=== PATIENT | female | born 1960 | race Caucasian/White ===

== ENCOUNTER 2019-05-30 11:59 | Inpatient (IN) | payer BC ==
[2019-05-30] MEDS ORDERED: Sodium Chloride 0.9% 10 ML Syringe FLUSH PRN (12:11)
[2019-05-30] MEDS ORDERED: Sodium Chloride 0.9% 1,000 ML IV SCH (12:15)
[2019-05-30] MEDS ORDERED: Piperacillin/Tazobactam 3.375 GM in Sodium Chloride 0.9% 100 ML IV SCH (13:00)
[2019-05-30] MEDS: Ondansetron 4 MG/2 ML SDV IVPUSH PRN ×2 (13:40→20:48)
[2019-05-30] MEDS ORDERED: Acetaminophen 500 MG Tab PO PRN (14:41)
[2019-05-30] MEDS ORDERED: Acetaminophen 650 MG Tab.ER PO PRN (14:41)
[2019-05-30] MEDS ORDERED: ClonazePAM 0.5 MG Tab PO PRN (14:41)
[2019-05-30] MEDS ORDERED: Cyclobenzaprine 10 MG Tab PO PRN (14:41)
[2019-05-30] MEDS ORDERED: Diclofenac Sodium 1% Gel 100 GM Tube TOP PRN (14:41)
[2019-05-30] MEDS ORDERED: Non-Formulary Medication 1 Each (Menthol [Biofreeze] 1 APPLIC) TP PRN (14:41)
[2019-05-30] MEDS ORDERED: Albuterol 8 GM Inhaler INH PRN (14:41)
[2019-05-30] MEDS: Sodium Chloride 0.9% 1,000 ML IV SCH (16:01)
[2019-05-30] MEDS: Acetaminophen 325 MG Tab PO PRN (16:21)
[2019-05-30] MEDS: traMADol 50 MG Tab PO PRN (16:22)
[2019-05-30] MEDS: Piperacillin/Tazobactam/Dext 3.375 GM in Premix Bag 1 BAG IV SCH (19:16)
[2019-05-30] MEDS: Gabapentin 300 MG Cap PO SCH (20:45)
[2019-05-30] MEDS: Metoprolol Succinate 50 MG Tab.ER PO SCH (20:52)
[2019-05-30] MEDS ORDERED: CYCLOSPORINE EYEBOTH SCH (21:00)
[2019-05-30] MEDS ORDERED: oxyCODONE 5 MG Tab PO PRN (21:00)
[2019-05-31] MEDS: Piperacillin/Tazobactam/Dext 3.375 GM in Premix Bag 1 BAG IV SCH ×4 (00:42→19:01)
[2019-05-31] MEDS: Acetaminophen 325 MG Tab PO PRN ×2 (00:46→18:23)
[2019-05-31] MEDS: Sodium Chloride 0.9% 1,000 ML IV SCH ×2 (03:05→14:20)
[2019-05-31 07:32] LABS: ANION GAP 12.8 mmol/L (5-15); CHLORIDE,CL 107 mmol/L (98-115); SODIUM,NA 141 mmol/L (136-145)
[2019-05-31] MEDS: traMADol 50 MG Tab PO PRN ×2 (08:30→16:24)
[2019-05-31] MEDS: Gabapentin 100 MG Cap PO SCH (08:31)
[2019-05-31] MEDS: Folic Acid 1 MG Tab PO SCH (08:32)
[2019-05-31] MEDS: Ondansetron 4 MG/2 ML SDV IVPUSH PRN (08:41)
[2019-05-31] MEDS: Metoprolol Succinate 50 MG Tab.ER PO SCH ×2 (09:04→20:16)
--- NOTE | 2019-05-31 11:52 | PCM.PN ---
- General Info Date of Service: 05/31/19 Functional Status: Reports: Pain Controlled, Urinating. Denies: Tolerating Diet , Ambulating, New Symptoms - Review of Systems General: Reports: Fever, Chills, Night Sweats. Denies: Weakness, Fatigue HEENT: Reports: Sinus Congestion Pulmonary: Reports: No Symptoms Cardiovascular: Reports: No Symptoms Gastrointestinal: Reports: Decreased Appetite Genitourinary: Reports: Flank Pain (Mild, ) Musculoskeletal: Reports: No Symptoms Skin: Reports: Dryness Neurological: Denies: Confusion Psychiatric: Reports: No Symptoms - Patient Data Vitals - Most Recent: Last Vital Signs Temp 97.6 F 05/31/19 06:49 Pulse 72 05/31/19 09:04 Resp 20 05/31/19 06:49 BP 94/62 05/31/19 09:04 Pulse Ox 98 05/31/19 06:49 Weight - Most Recent: 167 lb 14.4 oz I&O - Last 24 Hours: Intake & Output 05/30/19 05/31/19 05/31/19 22:59 06:59 14:59 Intake Total 240 2041 Output Total 600 900 Balance -360 1141 Lab Results Last 24 Hours: Laboratory Results - last 24 hr 05/30/19 05/31/19 05/31/19 Range/Units 17:15 06:58 06:58 WBC 4.65 L (5.00-10.00) 10^3/uL RBC 3.49 L (3.80-5.50) 10^6/uL Hgb 11.2 L (12.0-16.0) g/dL Hct 34.1 L (37.0-47.0) % MCV 97.7 H (82.0-92.0) fL MCH 32.1 H (27.0-31.0) pg MCHC 32.8 (32.0-36.0) g/dL RDW 12.9 (11.5-14.5) % Plt Count 182 (150-400) 10^3/uL MPV 10.0 (7.4-10.4) fL Immature Gran % (Auto) 0.2 (0.0-5.0) % Neut % (Auto) 63.9 (50.0-70.0) % Lymph % (Auto) 23.9 (20.0-40.0) % [place] % (Auto) 11.4 H (2.0-8.0) % Eos % (Auto) 0.4 L (1.0-3.0) % Baso % (Auto) 0.2 (0.0-1.0) % Immature Gran # (Auto) 0.01 (0.00-0.50) 10^3/uL Neut # (Auto) 2.97 (2.50-7.00) 10^3/uL Lymph # (Auto) 1.11 (1.00-4.00) 10^3/uL [place] # (Auto) 0.53 (0.10-0.80) 10^3/uL Eos # (Auto) 0.02 L (0.10-0.30) 10^3/uL Baso # (Auto) 0.01 (0.00-0.10) 10^3/uL Sodium 141 (136-145) mmol/L Potassium 3.7 (3.3-5.3) mmol/L Chloride 107 (98-115) mmol/L Carbon Dioxide 24.9 (21.0-32.0) mmol/L Anion Gap 12.8 (5-15) mmol/L BUN 16 (6-25) mg/dL Creatinine 0.58 (0.51-1.17) mg/dL Est Cr Clr Drug Dosing 93.98 mL/min Estimated GFR (MDRD) > 60 mL/min Glucose 86 (75 - 99) mg/dL Lactic Acid 1.0 (0.4-2.0) mmol/L Calcium 8.0 L (8.7-10.3) mg/dL Med Orders - Current: Current Medications Acetaminophen (Tylenol) 650 mg PO Q4H PRN PRN Reason: Fever Last Admin: 05/31/19 00:46 Dose: 650 mg Albuterol (Ventolin Hfa) 0 gm INH Q4H PRN PRN Reason: Cough Clonazepam (Klonopin) 0.5 - 1 mg PO BEDTIME PRN PRN Reason: Other Cyclobenzaprine HCl (Flexeril) 5 - 10 mg PO TID PRN PRN Reason: Muscle Spasm Diclofenac Sodium (Voltaren 1% Gel) 2 gm TOP QID PRN PRN Reason: Pain Folic Acid (Folic Acid) 1 mg PO DAILY [facility] Last Admin: 05/31/19 08:32 Dose: 1 mg Gabapentin (Neurontin) 200 mg PO DAILY [facility] Last Admin: 05/31/19 08:31 Dose: 200 mg Gabapentin (Neurontin) 600 mg PO DAILY@1400 JOAN Gabapentin (Neurontin) 900 mg PO BEDTIME [facility] Last Admin: 05/30/19 20:45 Dose: 900 mg Piperacillin/Tazobactam/ (Dextrose 3.375 gm/ Premix) 50 mls @ 100 mls/hr IV Q6H [facility] Last Admin: 05/31/19 06:23 Dose: 100 mls/hr Sodium Chloride (Normal Saline) 1,000 mls @ 999 mls/hr IV .BOLUS [facility] Last Admin: 05/30/19 13:27 Dose: 999 mls/hr Sodium Chloride (Normal Saline) 1,000 mls @ 100 mls/hr IV ASDIRECTED [facility] Last Admin: 05/31/19 03:05 Dose: 100 mls/hr Metoprolol Succinate (Toprol Xl) 25 mg PO BID [facility] Last Admin: 05/31/19 09:04 Dose: Not Given Ondansetron HCl (Zofran) 4 mg IVPUSH Q4H PRN PRN Reason: Nausea/Vomiting Last Admin: 05/31/19 08:41 Dose: 4 mg Oxycodone HCl (Oxycodone) 5 mg PO BID PRN PRN Reason: Pain (severe 7-10) Sodium Chloride (Saline Flush) 10 ml FLUSH Q8HR PRN PRN Reason: keep vein open Tramadol HCl (Ultram) 50 - 100 mg PO TID PRN PRN Reason: Pain (moderate 4-6) Last Admin: 05/31/19 08:30 Dose: 50 mg Discontinued Medications Acetaminophen (Tylenol Arthritis Pain) 650 mg PO Q8H PRN PRN Reason: Pain Piperacillin Sod/Tazobactam (Sod 3.375 gm/ Sodium Chloride) 100 mls @ 200 mls/ hr IV ONETIME [facility] Stop: 05/30/19 15:00 Last Admin: 05/30/19 13:40 Dose: 200 mls/hr Non-Formulary Medication (Cyclosporine [Restasis Multidose]) 5.5 ml EYEBOTH BID JOAN - Exam Quality Assessment: No: Supplemental Oxygen General: Alert, Oriented, Cooperative, No Acute Distress Neck: No JVD Lungs: Clear to Auscultation, Normal Respiratory Effort Cardiovascular: Regular Rate, Regular Rhythm. No: Tachycardia, Murmurs GI/Abdominal Exam: Normal Bowel Sounds, Soft. No: Distended, Guarding, Rigid, Tender Back Exam: CVA Tenderness (L), CVA Tenderness (R) Extremities: No Pedal Edema Peripheral Pulses: 2+: Radial (R), Femoral (L) Skin: Dry Neurological: No New Focal Deficit Psy/Mental Status: Alert, Normal Affect, Normal Mood - Problem List Review Problem List Initiated/Reviewed/Updated: Yes - Plan Plan:: History summary Anna is a very pleasant 58-year-old female who was admitted through [facility] by [employer]bl[employer] with concerns of UTI/sepsis patient reported 1-2 days of with poor appetite, nausea, decreased by mouth intake and fever (Tmax 104 F). Associated severe neck pain to bilateral sides, headache, dry heaves, poor urine output, acute sinus congestion. Patient has had cystectom/Illeal conduit in 1994 since age 34, Hysterectomy in 1981, and is followed at [facility]. Last evaluated there on 05/12/19 and had a positive urine culture of >100,000 Ecoli with sensitivity to zosyn and rocephin. Since he was asymptomatic but recommended no treatment. She does have RA and is on DMARD therapy Update on rounds, overall symptoms improving, white count down, fever 102 early on admission, approved however chills last night. Improving in her CVA tenderness, blood pressure low holding BP meds, lactic acid normal, no altered mental status, looks good today Primary hospital problems Pyelonephritis, without sepsis, suspect 2/2 fever, CVA tenderness, chills last night, however no pyuria Rule out sepsis, ruled out Dehydration, improving Immunocompromised host, Significant allergies Chronic conditions --HTN, holding parameters. --Reactive airway disease , stable --Seronegative RA of multiple joints: Last took Enbrel on 05/18/19. On prednisone 10 mg daily PRN, folic acid 1 mg daily. Follows with rheumatology and last seen on 02/06/19. HOLD DMARD --Fibromyalgia syndrome, decrease tramadol, oxycodone IR 5 mg BID PRN, gabapentin, flexeril, tylenol arthritis --GERD, PPI --RLS --History of gout MDM/Disposition/overall plan With patient having urinary diversion, with systemic illness on admission likely prudent to have low threshold and treating her with complicated UTI/ pyonephritis especially in light of her RA and on DMARD therapy, however also considering her urine from the [facility] was clear in color with no cloudiness so likely not suggestive of pyuria which one would suspect with pyelonephritis/UTI. Will need to determine if any growth on her bacterial cultures --Continues to meet inpatient qualification, --Add Rocephin --Blood culture/urine cultures pending --Continue broad-spectrum Zosyn --Consider fevers lagging --Hold DMARD therapy --Reduce tramadol to 50 mg, with fibromyalgia hx consider low threshold for pain , I do not see pain mgt contract with her PCP, will highly recommend upon discharge to consider, could not generate PDMP report today. --Continue IV fluids, --BP med parameters --Allergy alert --To chair --Add micro-chamber to urine bag
[2019-05-31] MEDS: cefTRIAXone 1 GM Vial IVPUSH SCH (12:40)
[2019-05-31] MEDS ORDERED: Cyclobenzaprine 10 MG Tab PO PRN (13:16)
[2019-05-31] MEDS: Gabapentin 300 MG Cap PO SCH ×2 (14:19→20:16)
[2019-06-01] MEDS: Piperacillin/Tazobactam/Dext 3.375 GM in Premix Bag 1 BAG IV SCH ×2 (00:59→06:40)
[2019-06-01] MEDS: Sodium Chloride 0.9% 1,000 ML IV SCH (01:01)
[2019-06-01] MEDS: traMADol 50 MG Tab PO PRN ×3 (03:43→21:37)
[2019-06-01] MEDS: Ondansetron 4 MG/2 ML SDV IVPUSH PRN (03:45)
[2019-06-01] MEDS: Carboxymethylcellulose Sodium 0.5% Ophth Soln 15 ML Bottle EYEBOTH PRN ×2 (03:55→08:51)
[2019-06-01] MEDS: Folic Acid 1 MG Tab PO SCH (08:49)
[2019-06-01] MEDS: Metoprolol Succinate 50 MG Tab.ER PO SCH (08:49)
[2019-06-01] MEDS: Gabapentin 100 MG Cap PO SCH (08:49)
[2019-06-01] MEDS ORDERED: Sodium Chloride 0.9% 10 ML Syringe FLUSH PRN (10:46)
--- NOTE | 2019-06-01 10:50 | PCM.PN ---
- General Info Date of Service: 06/01/19 Functional Status: Reports: Pain Controlled, Tolerating Diet, Ambulating, Urinating, New Symptoms (Mild constipation) - Review of Systems General: Reports: No Symptoms. Denies: Fever, Weakness, Night Sweats HEENT: Reports: Sinus Congestion Pulmonary: Reports: No Symptoms Cardiovascular: Reports: No Symptoms Gastrointestinal: Reports: Constipation. Denies: Decreased Appetite, Diarrhea Genitourinary: Reports: No Symptoms Musculoskeletal: Reports: No Symptoms Skin: Reports: No Symptoms Neurological: Reports: No Symptoms Psychiatric: Reports: No Symptoms - Patient Data Vitals - Most Recent: Last Vital Signs Temp 98.0 F 06/01/19 06:55 Pulse 91 06/01/19 08:49 Resp 16 06/01/19 06:55 BP 91/52 L 06/01/19 08:49 Pulse Ox 98 06/01/19 06:55 Weight - Most Recent: 167 lb 14.4 oz I&O - Last 24 Hours: Intake & Output 05/31/19 06/01/19 06/01/19 22:59 06:59 14:59 Intake Total 1145 1094 Output Total 1500 1100 Balance -355 -6 Lab Results Last 24 Hours: Laboratory Results - last 24 hr 06/01/19 Range/Units 07:20 WBC 3.27 L (5.00-10.00) 10^3/uL RBC 3.33 L (3.80-5.50) 10^6/uL Hgb 10.8 L (12.0-16.0) g/dL Hct 32.6 L (37.0-47.0) % MCV 97.9 H (82.0-92.0) fL MCH 32.4 H (27.0-31.0) pg MCHC 33.1 (32.0-36.0) g/dL RDW 12.8 (11.5-14.5) % Plt Count 189 (150-400) 10^3/uL MPV 10.0 (7.4-10.4) fL Immature Gran % (Auto) 0.0 (0.0-5.0) % Neut % (Auto) 47.0 L (50.0-70.0) % Lymph % (Auto) 34.9 (20.0-40.0) % [place] % (Auto) 14.1 H (2.0-8.0) % Eos % (Auto) 3.1 H (1.0-3.0) % Baso % (Auto) 0.9 (0.0-1.0) % Immature Gran # (Auto) 0.00 (0.00-0.50) 10^3/uL Neut # (Auto) 1.54 L (2.50-7.00) 10^3/uL Lymph # (Auto) 1.14 (1.00-4.00) 10^3/uL [place] # (Auto) 0.46 (0.10-0.80) 10^3/uL Eos # (Auto) 0.10 (0.10-0.30) 10^3/uL Baso # (Auto) 0.03 (0.00-0.10) 10^3/uL ESR 30 H (0-20) mm/hr Med Orders - Current: Current Medications Acetaminophen (Tylenol) 650 mg PO Q4H PRN PRN Reason: Fever Last Admin: 05/31/19 18:23 Dose: 650 mg Albuterol (Ventolin Hfa) 0 gm INH Q4H PRN PRN Reason: Cough Artificial Tears (Refresh Tears 0.5%) 0 ml EYEBOTH ASDIRECTED PRN PRN Reason: Dry Eyes Last Admin: 06/01/19 08:51 Dose: 1 drop Ceftriaxone Sodium (Rocephin) 1 gm IVPUSH Q24H [facility] Last Admin: 05/31/19 12:40 Dose: 1 gm Clonazepam (Klonopin) 0.5 - 1 mg PO BEDTIME PRN PRN Reason: Other Cyclobenzaprine HCl (Flexeril) 10 mg PO TID PRN PRN Reason: Muscle Spasm Last Admin: 05/31/19 13:52 Dose: 10 mg Diclofenac Sodium (Voltaren 1% Gel) 2 gm TOP QID PRN PRN Reason: Pain Folic Acid (Folic Acid) 1 mg PO DAILY [facility] Last Admin: 06/01/19 08:49 Dose: 1 mg Gabapentin (Neurontin) 200 mg PO DAILY [facility] Last Admin: 06/01/19 08:49 Dose: 200 mg Gabapentin (Neurontin) 600 mg PO DAILY@1400 [facility] Last Admin: 05/31/19 14:19 Dose: 600 mg Gabapentin (Neurontin) 900 mg PO BEDTIME [facility] Last Admin: 05/31/19 20:16 Dose: 900 mg Piperacillin/Tazobactam/ (Dextrose 3.375 gm/ Premix) 50 mls @ 100 mls/hr IV Q6H [facility] Last Admin: 06/01/19 06:40 Dose: 100 mls/hr Sodium Chloride (Normal Saline) 1,000 mls @ 999 mls/hr IV .BOLUS [facility] Last Admin: 05/30/19 13:27 Dose: 999 mls/hr Sodium Chloride (Normal Saline) 1,000 mls @ 100 mls/hr IV ASDIRECTED [facility] Last Admin: 06/01/19 01:01 Dose: 100 mls/hr Metoprolol Succinate (Toprol Xl) 25 mg PO BID [facility] Last Admin: 06/01/19 08:49 Dose: Not Given Ondansetron HCl (Zofran) 4 mg IVPUSH Q4H PRN PRN Reason: Nausea/Vomiting Last Admin: 06/01/19 03:45 Dose: 4 mg Oxycodone HCl (Oxycodone) 5 mg PO BID PRN PRN Reason: Pain (severe 7-10) Sodium Chloride (Saline Flush) 10 ml FLUSH Q8HR PRN PRN Reason: keep vein open Last Admin: 06/01/19 03:47 Dose: 10 ml Tramadol HCl (Ultram) 50 mg PO TID PRN PRN Reason: Pain (moderate 4-6) Last Admin: 06/01/19 03:43 Dose: 50 mg Discontinued Medications Acetaminophen (Tylenol Arthritis Pain) 650 mg PO Q8H PRN PRN Reason: Pain Cyclobenzaprine HCl (Flexeril) 5 - 10 mg PO TID PRN PRN Reason: Muscle Spasm Piperacillin Sod/Tazobactam (Sod 3.375 gm/ Sodium Chloride) 100 mls @ 200 mls/ hr IV ONETIME [facility] Stop: 05/30/19 15:00 Last Admin: 05/30/19 13:40 Dose: 200 mls/hr Non-Formulary Medication (Cyclosporine [Restasis Multidose]) 5.5 ml EYEBOTH BID [facility] Tramadol HCl (Ultram) 50 - 100 mg PO TID PRN PRN Reason: Pain (moderate 4-6) Last Admin: 05/31/19 08:30 Dose: 50 mg - Exam Quality Assessment: Urine Catheter (Urine is clear), DVT Prophylaxis (Will apply test today). No: Supplemental Oxygen General: Alert, Oriented Neck: Supple Lungs: Clear to Auscultation, Normal Respiratory Effort Cardiovascular: Regular Rate, Regular Rhythm GI/Abdominal Exam: Soft (Female) Exam: Deferred Back Exam: CVA Tenderness (L) (Much less tenderness left side). No: CVA Tenderness (R) Extremities: No Pedal Edema Skin: Warm, Dry, Intact Neurological: No New Focal Deficit Psy/Mental Status: Alert, Normal Affect, Normal Mood - Problem List Review Problem List Initiated/Reviewed/Updated: Yes - My Orders Last 24 Hours: My Active Orders 05/31/19 12:00 cefTRIAXone [Rocephin] 1 gm IVPUSH Q24H 05/31/19 12:16 traMADol [Ultram] 50 mg PO TID PRN 05/31/19 13:16 Cyclobenzaprine [Flexeril] 10 mg PO TID PRN 06/01/19 03:46 Carboxymethylcellulose Sodium [Refresh Tears 0.5%] 0 ml EYEBOTH ASDIRECTED PRN - Plan Plan:: History summary Anna is a very pleasant 58-year-old female who was 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 Associated severe neck pain to bilateral sides, headache, dry heaves, poor urine output, acute sinus congestion. Patient has had cystectom/Illeal conduit in 1994 since age 34, Hysterectomy in 1981, and is followed at [facility]. Last evaluated there on 05/12/19 and had a positive urine culture of >100,000 Ecoli with sensitivity to zosyn and rocephin. Since he was asymptomatic but recommended no treatment. She does have RA and is on DMARD therapy Update on rounds, much improved today, improving appetite, no chills, less CVA tenderness, slightly constipated today, no vomiting, urine clear, adequate intake output, Tmax past 24 hours ~99. Primary hospital problems Possible Pyelonephritis, without sepsis, Rule out sepsis, ruled out Elevated liver transaminases, ? DMARD etiology Hypotension, drug-induced/hypovolemia, Immunocompromised host, Significant allergies Chronic conditions --HTN, holding parameters. --Reactive airway disease , stable --Seronegative RA of multiple joints: Last took Enbrel on 05/18/19. On prednisone 10 mg daily PRN, folic acid 1 mg daily. Follows with rheumatology and last seen on 02/06/19. HOLD DMARD --Fibromyalgia syndrome, decrease tramadol, oxycodone IR 5 mg BID PRN, gabapentin, flexeril, tylenol arthritis --GERD, PPI --RLS --History of gout MDM/Disposition/overall plan With patient having urinary diversion, with systemic illness on admission likely prudent to have low threshold and treating her with complicated UTI/ pyonephritis especially in light of her RA and on DMARD therapy, however also considering her urine from the [facility] was clear in color with no cloudiness so likely not suggestive of pyuria which one would suspect with pyelonephritis/UTI. No growth on blood cultures, culture pending. --Discontinue Zosyn --Continue Rocephin --Saline lock, discontinue IV fluids, --Add stool softener --Encourage PO fluids fluids --Blood culture no growth. Urine culture pending, will request preliminary results today --Hold DMARD therapy --HOLD BP med --DVT prophylaxis, ambulation BATOOL stockings --Allergy alert Discharge planning --Anticipate discharge in a.m. if no fever, vomiting, improving blood pressure. --Will recommend PCP on discharge to consider placing on pain mgt contract if the need for ongoing COT.
[2019-06-01] MEDS: cefTRIAXone 1 GM Vial IVPUSH SCH (12:14)
[2019-06-01] MEDS: Docusate Sodium 100 MG Cap PO SCH (12:15)
[2019-06-01] MEDS: Gabapentin 300 MG Cap PO SCH ×2 (13:39→21:35)
[2019-06-02] MEDS: Carboxymethylcellulose Sodium 0.5% Ophth Soln 15 ML Bottle EYEBOTH PRN ×2 (06:00→09:52)
[2019-06-02] MEDS: Docusate Sodium 100 MG Cap PO SCH (08:18)
[2019-06-02] MEDS: Folic Acid 1 MG Tab PO SCH (08:18)
[2019-06-02] MEDS: Gabapentin 100 MG Cap PO SCH (08:18)
--- NOTE | 2019-06-02 09:14 | PCM.DCSUM1 ---
Discharge Summary - Hospital Course Diagnosis: Stroke: No - Discharge Data Discharge Date: 06/02/19 Discharge Disposition: Home, Self-Care 01 Condition: Good - Patient Instructions Diet: Usual Diet as Tolerated, Drink 8-10+ Glasses/Day Activity: As Tolerated Driving: May Drive Today Showering/Bathing: May Shower Notify Provider of: Fever, Increased Pain, Nausea and/or Vomiting - Discharge Plan *PRESCRIPTION DRUG MONITORING PROGRAM REVIEWED*: No (PDMP sx down) *COPY OF PRESCRIPTION DRUG MONITORING REPORT IN PATIENT JESSICA: No (PDPM system down.) Home Medications: Home Meds Acetaminophen [Pain Relief Extra Strength] 500 mg PO BID PRN 05/30/19 [History] Acetaminophen [Tylenol Arthritis Pain] 650 mg PO Q8H PRN 05/30/19 [History] Albuterol [Ventolin HFA] 2 puff INH Q4H PRN 05/30/19 [History] Ascorbic Acid [Vitamin C] 1,000 mg PO DAILY 05/30/19 [History] Gnqavdf-Nazifpyax-Bmlnwql D 2 tab PO DAILY 05/30/19 [History] Clobetasol [Temovate 0.05%] 25 ml TOP BID 05/30/19 [History] ClonazePAM [KlonoPIN] 0.5 - 1 mg PO BEDTIME PRN 05/30/19 [History] Cyclobenzaprine [Flexeril] 10 mg PO TID PRN 05/30/19 [History] Dextran 70/Hypromellose [Artificial Tears] 1 - 2 drop EYEBOTH QID 05/30/19 [ History] Diclofenac Sodium [Voltaren 1% Gel] 1 applic TP QID PRN 05/30/19 [History] Etanercept [Enbrel Sureclick] 50 mg SQ Q7D 05/30/19 [History] Folic Acid 1 mg PO DAILY 05/30/19 [History] Gabapentin [Neurontin] 200 mg PO DAILY 05/30/19 [History] Gabapentin [Neurontin] 600 mg PO DAILY@1600 05/30/19 [History] Gabapentin [Neurontin] 900 mg PO BEDTIME 05/30/19 [History] Ketotifen [Ketotifen 0.025% Ophth Soln] 1 drop EYEBOTH BID PRN 05/30/19 [History ] Lutein 20 mg PO DAILY 05/30/19 [History] Menthol [Biofreeze] 1 applic TP BID PRN 05/30/19 [History] Metoprolol Succinate 25 mg PO BID 05/30/19 [History] Nystatin [Nystop] 1 applic TOP TID PRN 05/30/19 [History] Ondansetron [Zofran] 4 mg PO TID PRN 05/30/19 [History] Tumeric 500 mg PO BID 05/30/19 [History] Zoledronic Acid in Water [Reclast] 5 mg IV Q12M 05/30/19 [History] cycloSPORINE [Restasis Multidose] 5.5 ml EYEBOTH BID 05/30/19 [History] oxyCODONE 5 mg PO BID PRN 05/30/19 [History] predniSONE [Prednisone] 10 mg PO DAILY 05/30/19 [History] traMADol HCl [Tramadol HCl] 50 mg PO TID PRN 05/30/19 [History] - Discharge Summary/Plan Comment DC Time >30 min.: No Discharge Summary/Plan Comment: Final diagnosis R/O Pyelonephritis, this was ruled out Rule out sepsis, ruled out Autoimmune hepatitis/Elevated transaminases, suspect DMARD etiology Immunocompromised host Dehydration, euvolemic on discharge Significant allergies History summary Anna is a very pleasant 58-year-old female who was admitted through [facility] by Sierra Leblanc NP with concerns of UTI/sepsis patient reported 1-2 days of with poor appetite, nausea, decreased by mouth intake and fever (Tmax 104 F). Associated severe neck pain to bilateral sides, headache, dry heaves, poor urine output, acute sinus congestion. Patient has had cystectom/Illeal conduit in 1994 since age 34, Hysterectomy in 1981, and is followed at [facility]. Last evaluated there on 05/12/19 and had a positive urine culture of >100,000 Ecoli with sensitivity to zosyn and rocephin. Since he was asymptomatic but recommended no treatment. She does have RA and is on DMARD therapy therefore opportunistic infection was suspect Hospital course No complications, side effects or adverse reactions to treatments and/or medications. Temperature max 102 however that was very early on on admission. Rocephin was added to broad-spectrum Zosyn however eventually patient's condition started pointing to non-bacterial etiology of her symptoms therefore Zosyn was discontinued. She was afebrile 36 hours prior to discharge. Her blood pressure medicine was held as she did have low however asymptomatic blood pressure however MAPs were adequate. Her urine remained clear, her CVA tenderness was improving, she had improved appetite area no diarrhea however slight constipation improved with Colace. Review of her [facility] chart her urine was clear, urine cultures mixed carolann with no organism. Blood cx. no growth. White count dropped quickly below the expected threshold of a bacterial infection. No casts were seen in urine. Her symptoms on admission highly suggested likely pyelonephritis and with patient having urinary diversion, along with her with systemic illness on admission I felt likely prudent to have a low threshold of bacterial etiology and treating her A complicated UTI/ pyonephritis especially in light of her RA and on DMARD therapy, however also considering her urine from the [facility] was clear in color with no cloudiness so likely not suggestive of pyuria which one would suspect with pyelonephritis/UTI. No growth on blood cultures, culture pending. Medication changes plus adjustments upon discharge Hold Toprol until f/u. Hold DMARD until rheumatology appt Disposition/plan Patient will be discharged home self-care, DC instructions given. Report fevers , chills, Follow up with Sierra Leblanc Sunday, Recommendations upon follow-up Labs to assess LFTs 2/2 elevated transaminases, suspect DMARD etiology Possible restarting Toprol May need pain mgt contract if the need for ongoing COT. - General Info Functional Status: Reports: Pain Controlled - Review of Systems General: Reports: No Symptoms HEENT: Reports: Sinus Congestion Pulmonary: Reports: No Symptoms Cardiovascular: Reports: No Symptoms Gastrointestinal: Reports: No Symptoms Genitourinary: Reports: No Symptoms Musculoskeletal: Reports: No Symptoms Skin: Reports: No Symptoms Neurological: Reports: No Symptoms Psychiatric: Reports: No Symptoms - Patient Data Vitals - Most Recent: Last Vital Signs Temp 97.4 F 06/02/19 06:52 Pulse 67 06/02/19 06:52 Resp 16 06/02/19 06:52 BP 122/75 06/02/19 06:52 Pulse Ox 98 06/02/19 06:52 Weight - Most Recent: 167 lb 14.4 oz I&O - Last 24 hours: Intake & Output 06/01/19 06/02/19 06/02/19 22:59 06:59 14:59 Intake Total 350 300 Output Total 1500 1200 Balance -1150 -900 Med Orders - Current: Current Medications Acetaminophen (Tylenol) 650 mg PO Q4H PRN PRN Reason: Fever Last Admin: 05/31/19 18:23 Dose: 650 mg Albuterol (Ventolin Hfa) 0 gm INH Q4H PRN PRN Reason: Cough Artificial Tears (Refresh Tears 0.5%) 0 ml EYEBOTH ASDIRECTED PRN PRN Reason: Dry Eyes Last Admin: 06/02/19 06:00 Dose: 1 drop Ceftriaxone Sodium (Rocephin) 1 gm IVPUSH Q24H [facility] Last Admin: 06/01/19 12:14 Dose: 1 gm Clonazepam (Klonopin) 0.5 - 1 mg PO BEDTIME PRN PRN Reason: Other Cyclobenzaprine HCl (Flexeril) 10 mg PO TID PRN PRN Reason: Muscle Spasm Last Admin: 05/31/19 13:52 Dose: 10 mg Diclofenac Sodium (Voltaren 1% Gel) 2 gm TOP QID PRN PRN Reason: Pain Docusate Sodium (Colace) 100 mg PO DAILY [facility] Last Admin: 06/02/19 08:18 Dose: 100 mg Folic Acid (Folic Acid) 1 mg PO DAILY [facility] Last Admin: 06/02/19 08:18 Dose: 1 mg Gabapentin (Neurontin) 200 mg PO DAILY [facility] Last Admin: 06/02/19 08:18 Dose: 200 mg Gabapentin (Neurontin) 600 mg PO DAILY@1400 [facility] Last Admin: 06/01/19 13:39 Dose: 600 mg Gabapentin (Neurontin) 900 mg PO BEDTIME [facility] Last Admin: 06/01/19 21:35 Dose: 900 mg Metoprolol Succinate (Toprol Xl) 25 mg PO BID [facility] Last Admin: 06/01/19 08:49 Dose: Not Given Ondansetron HCl (Zofran) 4 mg IVPUSH Q4H PRN PRN Reason: Nausea/Vomiting Last Admin: 06/01/19 03:45 Dose: 4 mg Oxycodone HCl (Oxycodone) 5 mg PO BID PRN PRN Reason: Pain (severe 7-10) Sodium Chloride (Saline Flush) 10 ml FLUSH Q8HR PRN PRN Reason: keep vein open Last Admin: 06/01/19 03:47 Dose: 10 ml Sodium Chloride (Saline Flush) 10 ml FLUSH Q8HR PRN PRN Reason: keep vein open Tramadol HCl (Ultram) 50 mg PO TID PRN PRN Reason: Pain (moderate 4-6) Last Admin: 06/01/19 21:37 Dose: 50 mg Discontinued Medications Acetaminophen (Tylenol Arthritis Pain) 650 mg PO Q8H PRN PRN Reason: Pain Cyclobenzaprine HCl (Flexeril) 5 - 10 mg PO TID PRN PRN Reason: Muscle Spasm Piperacillin/Tazobactam/ (Dextrose 3.375 gm/ Premix) 50 mls @ 100 mls/hr IV Q6H [facility] Last Admin: 06/01/19 06:40 Dose: 100 mls/hr Sodium Chloride (Normal Saline) 1,000 mls @ 999 mls/hr IV .BOLUS [facility] Last Admin: 05/30/19 13:27 Dose: 999 mls/hr Sodium Chloride (Normal Saline) 1,000 mls @ 100 mls/hr IV ASDIRECTED [facility] Last Admin: 06/01/19 01:01 Dose: 100 mls/hr Piperacillin Sod/Tazobactam (Sod 3.375 gm/ Sodium Chloride) 100 mls @ 200 mls/ hr IV ONETIME [facility] Stop: 05/30/19 15:00 Last Admin: 05/30/19 13:40 Dose: 200 mls/hr Non-Formulary Medication (Cyclosporine [Restasis Multidose]) 5.5 ml EYEBOTH BID [facility] Tramadol HCl (Ultram) 50 - 100 mg PO TID PRN PRN Reason: Pain (moderate 4-6) Last Admin: 05/31/19 08:30 Dose: 50 mg - Exam Quality Assessment: Denies: DVT Prophylaxis General: Reports: Alert, Oriented Neck: Reports: Supple Lungs: Reports: Clear to Auscultation, Normal Respiratory Effort Cardiovascular: Reports: Regular Rate, Regular Rhythm (Female) Exam: Deferred Rectal (Female) Exam: Deferred Back Exam: Denies: CVA Tenderness (L) Skin: Reports: Warm, Dry, Intact Neurological: Reports: No New Focal Deficit Psy/Mental Status: Reports: Alert, Normal Affect, Normal Mood
[2019-06-02] MEDS: cefTRIAXone 1 GM Vial IVPUSH SCH (12:24)
== END 2019-06-02 14:33 | disposition home or self-care (01) | DRG 463 ==
LOC: UNDOADMIN 11:59 → KA.MS 11:59
PROVIDERS: ADMIT Nurse Practitioner Family; ATTEND Nurse Practitioner Family
DX: N30.01 Acute cystitis with hematuria (principal); E86.0 Dehydration; D89.9 Disorder involving the immune mechanism, unspecified; R74.0 Nonspecific elevation of levels of transaminase and lactic acid dehydrogenase [LDH]; G25.81 Restless legs syndrome; K59.00 Constipation, unspecified; M06.9 Rheumatoid arthritis, unspecified; M79.7 Fibromyalgia; R79.89 Other specified abnormal findings of blood chemistry; M81.0 Age-related osteoporosis without current pathological fracture; G89.29 Other chronic pain; G43.909 Migraine, unspecified, not intractable, without status migrainosus; M10.9 Gout, unspecified; I10 Essential (primary) hypertension; K21.9 Gastro-esophageal reflux disease without esophagitis; Z90.49 Acquired absence of other specified parts of digestive tract; Z98.890 Other specified postprocedural states; Z79.51 Long term (current) use of inhaled steroids; Z90.710 Acquired absence of both cervix and uterus; Z93.6 Other artificial openings of urinary tract status; Z88.1 Allergy status to other antibiotic agents; Z88.2 Allergy status to sulfonamides; Z91.013 Allergy to seafood; Z91.018 Allergy to other foods; Z88.8 Allergy status to other drugs, medicaments and biological substances; Z79.899 Other long term (current) drug therapy
CPT/HCPCS: 36415; 80048; 83605; 85025; 85651; A9270-GY; J0696; J2405; J2543; J7030; J7040; J7050

== ENCOUNTER 2020-05-16 14:00 | Emergency (ER) | payer BC ==
[2020-05-16] MEDS ORDERED: Morphine 2 MG/ML SYRINGE ONE (14:33)
[2020-05-16] MEDS ORDERED: Morphine 2 MG/ML SYRINGE IVPUSH ONE (14:37)
[2020-05-16] MEDS ORDERED: Ondansetron 4 MG/2 ML SDV IVPUSH ONE (14:37)
--- NOTE | 2020-05-16 14:43 | EDM.PDOC ---
ED HPI GENERAL MEDICAL PROBLEM - General Chief Complaint: Upper Extremity Injury/Pain Stated Complaint: LEFT WRIST PAIN Time Seen by Provider: 05/16/20 14:15 Source of Information: Reports: Patient History Limitations: Reports: No Limitations - History of Present Illness INITIAL COMMENTS - FREE TEXT/NARRATIVE: 59 YO WF PRESENTS TO ER WITH COMPLAINTS OF LEFT WRIST PAIN AND LEFT HIP PAIN AFTER TRIP AND FALLING BACKWARDS EARLIER TODAY. PT REPORTS SHE PUT HER LEFT ARM OUT TO BREAK HER FALL AND LANDED ON HER BUTTOCKS. PT REPORTS MAJORITY OF THE PAIN IS TO THE LEFT WRIST AND LEFT HIP. PT REPORTS SHE WAS ABLE TO STAND AFTER THE FALL BUT FELT NAUSEATED WITHOUT VOMITING. PT DENIES SYNCOPE, CHEST PAIN, DIZZINESS OR RECENT ILLNESSES. Onset: Today Location: Reports: Upper Extremity, Left, Lower Extremity, Left Quality: Reports: Ache Severity: Moderate Improves with: Reports: Rest Worsens with: Reports: Movement Context: Reports: Activity Associated Symptoms: Reports: No Other Symptoms, Nausea/Vomiting - Related Data Allergies Allergy/AdvReac Type Severity Reaction Status Date / Time iodine Allergy Sneezing Verified 05/30/19 13:11 lactose Allergy Other Verified 05/30/19 13:11 leflunomide Allergy Rash Verified 05/30/19 13:11 levofloxacin Allergy Rash Verified 05/30/19 13:11 prochlorperazine Allergy Other Verified 05/30/19 13:11 [From Compazine] stevioside [From Stevia] Allergy Rash Verified 05/30/19 13:11 strawberry Allergy Rash Verified 05/30/19 13:11 Sulfa (Sulfonamide Allergy Nausea and Verified 05/30/19 13:11 Antibiotics) Vomiting algae extract Allergy Difficulty Uncoded 05/30/19 13:11 Swallowing rup rub Allergy Other Uncoded 05/30/19 13:11 Home Meds: Home Meds Acetaminophen [Pain Relief Extra Strength] 500 mg PO BID PRN 05/30/19 [History] Acetaminophen [Tylenol Arthritis Pain] 650 mg PO Q8H PRN 05/30/19 [History] Albuterol [Ventolin HFA] 2 puff INH Q4H PRN 05/30/19 [History] Ascorbic Acid [Vitamin C] 1,000 mg PO DAILY 05/30/19 [History] Zukzlpr-Abvkujixm-Sblsjgc D 2 tab PO DAILY 05/30/19 [History] Clobetasol [Temovate 0.05%] 25 ml TOP BID 05/30/19 [History] ClonazePAM [KlonoPIN] 0.5 - 1 mg PO BEDTIME PRN 05/30/19 [History] Cyclobenzaprine [Flexeril] 10 mg PO TID PRN 05/30/19 [History] Dextran 70/Hypromellose [Artificial Tears] 1 - 2 drop EYEBOTH QID 05/30/19 [History] Diclofenac Sodium [Voltaren 1% Gel] 1 applic TP QID PRN 05/30/19 [History] Etanercept [Enbrel Sureclick] 50 mg SQ Q7D 05/30/19 [History] Folic Acid 1 mg PO DAILY 05/30/19 [History] Gabapentin [Neurontin] 200 mg PO DAILY 05/30/19 [History] Gabapentin [Neurontin] 600 mg PO DAILY@1600 05/30/19 [History] Gabapentin [Neurontin] 900 mg PO BEDTIME 05/30/19 [History] Ketotifen [Ketotifen 0.025% Ophth Soln] 1 drop EYEBOTH BID PRN 05/30/19 [History] Lutein 20 mg PO DAILY 05/30/19 [History] Menthol [Biofreeze] 1 applic TP BID PRN 05/30/19 [History] Metoprolol Succinate 25 mg PO BID 05/30/19 [History] Nystatin [Nystop] 1 applic TOP TID PRN 05/30/19 [History] Ondansetron [Zofran] 4 mg PO TID PRN 05/30/19 [History] Tumeric 500 mg PO BID 05/30/19 [History] Zoledronic Acid in Water [Reclast] 5 mg IV Q12M 05/30/19 [History] cycloSPORINE [Restasis Multidose] 5.5 ml EYEBOTH BID 05/30/19 [History] oxyCODONE 5 mg PO BID PRN 05/30/19 [History] predniSONE [Prednisone] 10 mg PO DAILY 05/30/19 [History] traMADol HCl [Tramadol HCl] 50 mg PO TID PRN 05/30/19 [History] Hydrocodone/Acetaminophen [Hydrocodone-Acetamin 10-325 mg] 1 each PO Q6HR PRN #10 tablet 05/16/20 [Rx] Past Medical History HEENT History: Reports: None Cardiovascular History: Reports: Heart Murmur Respiratory History: Reports: Bronchitis, Recurrent Gastrointestinal History: Reports: Irritable Bowel Syndrome Genitourinary History: Reports: Urostomy, UTI, Recurrent KINDERGARTNER History: Reports: Musculoskeletal History: Reports: Arthritis, Fibromyalgia Other Musculoskeletal History: rheumatoid arthristis Neurological History: Reports: Vertigo Hematologic History: Reports: None Immunologic History: Reports: Other (See Below) Other Immunologic History: RA Oncologic (Cancer) History: Reports: None Other Dermatologic History: skin sensitivity - Infectious Disease History Infectious Disease History: Reports: None - Past Surgical History Head Surgeries/Procedures: Reports: None HEENT Surgical History: Reports: None Cardiovascular Surgical History: Reports: None GI Surgical History: Reports: None, Appendectomy, Cholecystectomy, Colonoscopy, EGD, Hernia, Inguinal Endocrine Surgical History: Reports: None Musculoskeletal Surgical History: Reports: Other (See Below) Other Musculoskeletal Surgeries/Procedures:: Bonios removed both feet for LUISANA Dermatological Surgical History: Reports: None Social & Family History - Family History Family Medical History: Noncontributory HEENT: Reports: Glaucoma Cardiac: Reports: None Respiratory: Reports: None GI: Reports: None : Reports: None Other OBGYN Family History: Ovarian disease Musculoskeletal: Reports: Fibromyalgia Neurological: Reports: None Psychiatric: Reports: None Endocrine/Metabolic: Reports: Hypothyroidism Immunologic: Reports: None Dermatologic: Reports: None - Caffeine Use Caffeine Use: Reports: None Caffeine Use Comment: decaf coffee and tea Review of Systems - Review of Systems Review Of Systems: See Below Constitutional: Reports: No Symptoms Eyes: Reports: No Symptoms Ears: Reports: No Symptoms Nose: Reports: No Symptoms Mouth/Throat: Reports: No Symptoms Respiratory: Reports: No Symptoms Cardiovascular: Reports: No Symptoms GI/Abdominal: Reports: No Symptoms Genitourinary: Reports: No Symptoms Musculoskeletal: Reports: Arm Pain, Leg Pain Skin: Reports: No Symptoms Neurological: Reports: No Symptoms Psychiatric: Reports: No Symptoms ED EXAM, GENERAL - Physical Exam Exam: See Below Exam Limited By: No Limitations General Appearance: Alert, WD/WN, No Apparent Distress Head: Atraumatic, Normocephalic Neck: Normal Inspection, Supple, Non-Tender, Full Range of Motion Respiratory/Chest: No Respiratory Distress, Lungs Clear, Normal Breath Sounds, No Accessory Muscle Use, Chest Non-Tender Cardiovascular: Normal Peripheral Pulses, Regular Rate, Rhythm, No Edema, No Gallop, No JVD, No Murmur, No Rub GI/Abdominal: Normal Bowel Sounds, Soft, Non-Tender, No Organomegaly, No Distention, No Abnormal Bruit, No Mass Back Exam: Normal Inspection, Full Range of Motion, NT Extremities: Arm Pain (LEFT WRIST SWELLING AND DEFORMITY, LEFT HIP TENDERNESS), Leg Pain Neurological: Alert, Oriented, CN II-XII Intact, Normal Cognition, Normal Gait, Normal Reflexes, No Motor/Sensory Deficits Psychiatric: Normal Affect, Normal Mood Skin Exam: Warm, Dry, Intact, Normal Color, No Rash Lymphatic: No Adenopathy ED TRAUMA EXTREMITY PROCEDURES - Splinting Left Upper Extremity Splint Site: left wrist Pre-Procedure NV Status: Normal Post-Procedure NV Status: Normal Splint Material: Fiberglass Splint Design: Sugar Tong Provider Post-Splint Application NV Check: NV Status Normal, Good Position Complications: No Course - Orders/Labs/Meds Orders: Active Orders 24 hr Category Date Time Status Splinting [RC] ASDIRECTED Care 05/16/20 15:38 Ordered Meds: Medications Discontinued Medications Generic Name Dose Route Start Last Admin Trade Name Freq PRN Reason Stop Dose Admin Hydrocodone Bitart/Acetaminophen 3 tab 05/16/20 15:36 [place] 325-10 Mg PO 05/16/20 15:37 ONETIME ONE Morphine Sulfate Confirm 05/16/20 14:33 Morphine Administered 05/16/20 14:34 Dose 2 mg .ROUTE .STK-MED ONE Morphine Sulfate 2 mg 05/16/20 14:37 Morphine IVPUSH 05/16/20 14:38 ONETIME ONE Morphine Sulfate 4 mg 05/16/20 14:47 Morphine IVPUSH 05/16/20 14:48 ONETIME ONE Ondansetron HCl 4 mg 05/16/20 14:37 Zofran IVPUSH 05/16/20 14:38 ONETIME ONE - Radiology Interpretation Free Text/Narrative:: left wrist- impacted distal radial fracture; ulnar styloid fracture left hip/pelvis- nad Departure - Departure Time of Disposition: 15:48 Disposition: Home, Self-Care 01 Condition: Good Clinical Impression: Fracture of radius and ulna Qualifiers: Encounter type: initial encounter Fracture type: closed Laterality: left Qualified Code(s): S52.92XA - Unspecified fracture of left forearm, initial encounter for closed fracture; S5 - Unspecified fracture of shaft of left ulna, initial encounter for closed fracture - Discharge Information Prescriptions: Hydrocodone/Acetaminophen [Hydrocodone-Acetamin 10-325 mg] 1 each PO Q6HR PRN #10 tablet PRN Reason: Pain Instructions: Wrist Fracture Treated With Immobilization, [id number] Referrals: Sierra Leblanc NP [Primary Care Provider] - Sudheer Meek MD [Ordering Only Provider] - Forms: ED Department Discharge Additional Instructions: 1. DISCHARGE HOME 2. HYDROCODONE 10/325 EVERY 6 HOURS NEEDED #[address]. [address]LLOW UP WITH DR ELAINE JOHN NEXT 3-5 DAYS FOR FURTHER EVALUATION AND TREATMENT 4. ICE/IMMOBILIZATION 5. RETURN TO ER FOR WORSENING SYMPTOMS - My Orders Last 24 Hours: My Active Orders 05/16/20 15:38 Splinting [RC] ASDIRECTED - Assessment/Plan Last 24 Hours: My Active Orders 05/16/20 15:38 Splinting [RC] ASDIRECTED Assessment:: 1. IMPACTED LEFT DISTAL RADIAL FRACTURE 2. LEFT ULNAR STYLOID FRACTURE 3. LEFT HIP CONTUSION Plan: 1. DISCHARGE HOME 2. HYDROCODONE 10/325 EVERY 6 HOURS NEEDED #[address]. [address]LLOW UP WITH DR ELAINE JOHN NEXT 3-5 DAYS FOR FURTHER EVALUATION AND TREATMENT 4. ICE/IMMOBILIZATION 5. RETURN TO ER FOR WORSENING SYMPTOMS
[2020-05-16] MEDS ORDERED: Morphine 4 MG/ML VIAL IVPUSH ONE (14:47)
--- NOTE | 2020-05-16 15:30 | CR ---
[id number] RAD/RAD Pelvis 1V W 2V Left Hip EXAM: RAD Pelvis 1V W 2V Left Hip INDICATION: FALL. COMPARISON: None. FINDINGS: The hips and sacroiliac joints are normal in appearance with no fracture, dislocation or other osseous abnormality identified. Surgical clips are seen within the pelvis. IMPRESSION: 1. No acute findings. Kulwant Pace MD 05/16/20 [id number] Thank you for allowing us to participate in the care of your patient.
--- NOTE | 2020-05-16 15:32 | CR ---
[id number] RAD/RAD Wrist Left 3V Min EXAM: RAD Wrist Left 3V Min INDICATION: FALL. COMPARISON: None. DISCUSSION: Osteopenia. Positioning of the lateral view mildly limits assessment of alignment. There is an acute angulated and impacted fracture involving the distal radius with involvement of the articular surface which is partially characterized on this study. Small avulsion fracture off the tip of the ulnar styloid, favor chronic. No dislocation. IMPRESSION: 1. Acute impacted and angulated intra-articular fracture of the distal radius. Kulwant Pace MD 05/16/20 [id number] Thank you for allowing us to participate in the care of your patient.
[2020-05-16] MEDS ORDERED: Acetaminophen/HYDROcodone 325-10 MG Tab PO ONE (15:36)
== END 2020-05-16 16:20 | disposition home or self-care (01) ==
LOC: KA.ED 14:00
DX: S52.572A Other intraarticular fracture of lower end of left radius, initial encounter for closed fracture (principal); S52.612A Displaced fracture of left ulna styloid process, initial encounter for closed fracture; M06.9 Rheumatoid arthritis, unspecified; Z88.8 Allergy status to other drugs, medicaments and biological substances; Z91.018 Allergy to other foods; Z88.2 Allergy status to sulfonamides; Z91.048 Other nonmedicinal substance allergy status; Z79.899 Other long term (current) drug therapy; W01.0XXA Fall on same level from slipping, tripping and stumbling without subsequent striking against object, initial encounter
CPT/HCPCS: 29075; 29125; 73110-LT; 96374; 96375; 99283; 99283-25; A9270-GY; J2270; J2405

== ENCOUNTER 2021-01-24 09:45 | Inpatient (IN) | payer BC ==
[2021-01-24] MEDS ORDERED: Non-Formulary Medication 1 Each (Menthol [Biofreeze] 118 ML Gel..Ml.) TP PRN (14:41)
[2021-01-24] MEDS ORDERED: traMADol 50 MG Tab - PTOM PO PRN (14:41)
[2021-01-24] MEDS ORDERED: Non-Formulary Medication 1 Each (Ketotifen [Ketotifen 0.025% Ophth Soln] 5 ML Bottle) EYEBOTH PRN (14:41)
[2021-01-24] MEDS ORDERED: Non-Formulary Medication 1 Each (Albuterol 18 GM Inhaler) INH PRN (14:41)
[2021-01-24] MEDS ORDERED: ONDANSETRON 4 MG PO PRN (14:41)
[2021-01-24] MEDS ORDERED: Nystatin Topical Powder 15 GM Bottle TOP PRN (14:41)
[2021-01-24] MEDS ORDERED: CLONAZEPAM 0.5 MG PO PRN (14:41)
[2021-01-24] MEDS ORDERED: DIPHENHYDRAMINE 25 MG PO PRN (15:55)
[2021-01-24] MEDS: traMADol 50 MG Tab - PTOM PO PRN (16:11)
[2021-01-24] MEDS: GABAPENTIN 300 MG PO SCH ×2 (16:13→22:00)
[2021-01-24] MEDS ORDERED: Omeprazole 20 MG Cap.CR PO PRN (16:56)
[2021-01-24] MEDS ORDERED: Non-Formulary Medication 1 Each (Clobetasol [Temovate 0.05%] 25 ML Bottle) TOP SCH (21:00)
[2021-01-24] MEDS ORDERED: TUMERIC 500 MG PO SCH (21:00)
[2021-01-24] MEDS ORDERED: Famotidine 20 MG Tab PO SCH (21:00)
[2021-01-24] MEDS: DAILY FIBER PO SCH (21:45)
[2021-01-24] MEDS: ORLISTAT PO SCH (21:45)
[2021-01-24] MEDS: ACETAMINOPHEN PO PRN (22:15)
[2021-01-24] MEDS: HYDROCODONE PO PRN (22:15)
[2021-01-25] MEDS: HYDROCODONE PO PRN ×3 (02:33→21:07)
[2021-01-25] MEDS: ACETAMINOPHEN PO PRN ×3 (02:33→21:07)
[2021-01-25] MEDS: GABAPENTIN 100 MG PO SCH (07:31)
[2021-01-25] MEDS: AMLODIPINE 5 MG PO SCH (07:32)
[2021-01-25] MEDS: traMADol 50 MG Tab - PTOM PO PRN (07:33)
[2021-01-25] MEDS ORDERED: Metoprolol Succinate 50 MG Tab.ER - PTOM PO SCH (08:00)
[2021-01-25] MEDS ORDERED: Docusate Sodium 100 MG Cap PO SCH (09:00)
[2021-01-25] MEDS ORDERED: DOCUSATE SODIUM 100 MG PO SCH (09:00)
[2021-01-25] MEDS ORDERED: predniSONE 20 MG Tab PO SCH (09:00)
[2021-01-25] MEDS: ASCORBIC ACID 500 MG PO SCH (09:34)
[2021-01-25] MEDS: METHYL FOLATE 1000 MCG PO SCH (09:35)
[2021-01-25] MEDS: SLOW FE PO SCH (09:35)
[2021-01-25] MEDS: FLUTICASONE PROPIONATE NASBOTH SCH (09:36)
[2021-01-25] MEDS: DAILY FIBER PO SCH ×2 (09:37→20:17)
[2021-01-25] MEDS: CALCIUM PO SCH (09:38)
[2021-01-25] MEDS: LUTEIN 20 MG PO SCH (09:38)
[2021-01-25] MEDS: VITAMIN D PO SCH (09:38)
[2021-01-25] MEDS: Docusate Sodium 100 MG Cap**OWN MED PO SCH (09:39)
[2021-01-25] MEDS: ORLISTAT PO SCH ×3 (10:01→18:13)
--- NOTE | 2021-01-25 10:35 | PCM.HP.2 ---
H&P History of Present Illness - General Date of Service: 01/25/21 Admit Problem/Dx: Admission Diagnosis/Problem Admission Diagnosis/Problem Debility - Related Data Allergies/Adverse Reactions: Allergies Allergy/AdvReac Type Severity Reaction Status Date / Time iodine Allergy Sneezing Verified 01/24/21 12:09 lactose Allergy Other Verified 01/24/21 12:09 leflunomide Allergy Rash Verified 01/24/21 12:09 levofloxacin Allergy Rash Verified 01/24/21 12:09 montelukast [From Singulair] Allergy Other Verified 01/24/21 12:09 prochlorperazine Allergy Other Verified 01/24/21 12:09 [From Compazine] shellfish derived Allergy Hives Verified 01/24/21 12:09 stevioside [From Stevia] Allergy Rash Verified 01/24/21 12:09 strawberry Allergy Rash Verified 01/24/21 12:09 Sulfa (Sulfonamide Allergy Nausea and Verified 01/24/21 12:09 Antibiotics) Vomiting algae extract Allergy Difficulty Uncoded 01/24/21 12:09 Swallowing rup rub Allergy Other Uncoded 01/24/21 12:09 Home Medications: Home Meds Acetaminophen [Pain Relief Extra Strength] 500 mg PO BID PRN 05/30/19 [History] Acetaminophen [Tylenol Arthritis Pain] 650 mg PO Q8H PRN 05/30/19 [History] Albuterol [Ventolin HFA] 2 puff INH Q4H PRN 05/30/19 [History] Ascorbic Acid [Vitamin C] 500 mg PO ASDIRECTED 05/30/19 [History] Unljvhe-Hnfqhxtit-Ydtsnfr D 2 tab PO DAILY 05/30/19 [History] Clobetasol [Temovate 0.05%] 25 ml TOP BID 05/30/19 [History] ClonazePAM [KlonoPIN] 0.5 - 1 mg PO BEDTIME PRN 05/30/19 [History] Cyclobenzaprine [Flexeril] 10 mg PO TID PRN 05/30/19 [History] Dextran 70/Hypromellose [Artificial Tears] 1 - 2 drop EYEBOTH QID PRN 05/30/19 [History] Diclofenac Sodium [Voltaren 1% Gel] 1 applic TP BID PRN 05/30/19 [History] Folic Acid 1 mg PO DAILY 05/30/19 [History] Gabapentin [Neurontin] 200 mg PO DAILY 05/30/19 [History] Gabapentin [Neurontin] 600 mg PO DAILY@1600 05/30/19 [History] Gabapentin [Neurontin] 900 mg PO BEDTIME 05/30/19 [History] Lutein 20 mg PO DAILY 05/30/19 [History] Menthol [Biofreeze] 1 applic TP BID PRN 05/30/19 [History] Metoprolol Succinate 50 mg PO DAILY 05/30/19 [History] Nystatin [Nystop] 1 applic TOP TID PRN 05/30/19 [History] Ondansetron [Zofran] 4 mg PO TID PRN 05/30/19 [History] Tumeric 500 mg PO BID 05/30/19 [History] Zoledronic Acid in Water [Reclast] 5 mg IV Q12M 05/30/19 [History] traMADol HCl [Tramadol HCl] 50 - 100 mg PO TID PRN 05/30/19 [History] Albuterol [Ventolin HFA] 1 - 2 puff INH Q4HR PRN 01/24/21 [History] Docusate Sodium 200 mg PO DAILY 01/24/21 [History] Ferrous Sulfate [Slow Release Iron] 160 mg PO ASDIRECTED 01/24/21 [History] Fluticasone Propionate [Flonase] 1 spray NASBOTH DAILY 01/24/21 [History] Hydrocodone/Acetaminophen [Hydrocodone-Acetamin 5-325 mg] 1 tab PO Q4H PRN 01/24/21 [History] InFLIXimab [Remicade] 100 mg IV ASDIRECTED 01/24/21 [History] Ketotifen [Ketotifen 0.025% Ophth Soln] 5 ml EYEBOTH BID PRN 01/24/21 [History] Lidocaine 4% [LMX 4] 1 applic TOP ASDIRECTED PRN 01/24/21 [History] Omeprazole 20 mg PO DAILY PRN 01/24/21 [History] Orlistat [Kenton] 60 mg PO BID 01/24/21 [History] Psyllium [Metamucil] 1.04 gm PO BID 01/24/21 [History] Trolamine Salicylate 85 gm TP DAILY PRN 01/24/21 [History] amLODIPine [Norvasc] 7.5 mg PO DAILY 01/24/21 [History] predniSONE 20 mg PO DAILY PRN 01/24/21 [History] Past Medical History HEENT History: Reports: Allergic Rhinitis, Impaired Vision Cardiovascular History: Reports: High Cholesterol, Hypertension Respiratory History: Reports: Asthma, Bronchitis, Recurrent, Other (See Below) Other Respiratory History: Acid reflux asthma Gastrointestinal History: Reports: Other (See Below) Other Gastrointestinal History: tortuous bowel Genitourinary History: Reports: Urostomy, UTI, Recurrent UTILITY ARBORIST History: Reports: Musculoskeletal History: Reports: Arthritis, Fibromyalgia, Osteoarthritis, RA Other Musculoskeletal History: rheumatoid arthristis Neurological History: Reports: Migraines, Vertigo Endocrine/Metabolic History: Reports: Obesity/BMI 30+ Hematologic History: Reports: None, Iron Deficiency Immunologic History: Reports: Immunosuppression, Other (See Below) Other Immunologic History: RA Oncologic (Cancer) History: Reports: None Dermatologic History: Reports: Other (See Below) Other Dermatologic History: skin sensitivity. dermatitis - Infectious Disease History Infectious Disease History: Reports: Chicken Pox, Shingles - Past Surgical History Head Surgeries/Procedures: Reports: None HEENT Surgical History: Reports: Tonsillectomy Cardiovascular Surgical History: Reports: None GI Surgical History: Reports: Appendectomy, Cholecystectomy, Colonoscopy, EGD, Hernia, Inguinal Female Surgical History: Reports: Cystectomy, Hysterectomy Endocrine Surgical History: Reports: None Musculoskeletal Surgical History: Reports: Other (See Below) Other Musculoskeletal Surgeries/Procedures:: Bonios removed both feet for LUISANA. swan neck deformity left ring finger hand surgery 01/24/21 Dermatological Surgical History: Reports: None Social & Family History - Family History Family Medical History: No Pertinent Family History HEENT: Reports: Glaucoma Cardiac: Reports: None Respiratory: Reports: None GI: Reports: None : Reports: None Other OBGYN Family History: Ovarian disease Musculoskeletal: Reports: Fibromyalgia Neurological: Reports: None Psychiatric: Reports: None Endocrine/Metabolic: Reports: Hypothyroidism Immunologic: Reports: None Dermatologic: Reports: None - Tobacco Use Tobacco Use Status *Q: Never Tobacco User Second Hand Smoke Exposure: No - Caffeine Use Caffeine Use: Reports: Tea Caffeine Use Comment: decaf coffee and tea - Recreational Drug Use Recreational Drug Use: No H&P Review of Systems - Review of Systems: Review Of Systems: See Below General: Denies: Fever, Chills, Malaise, Weakness, Fatigue, Decreased Appetite HEENT: Reports: No Symptoms Pulmonary: Denies: Shortness of Breath, Pleuritic Chest Pain, Cough, Sputum Cardiovascular: Reports: No Symptoms Gastrointestinal: Denies: Abdominal Pain, Constipation, Diarrhea, Vomiting Genitourinary: Reports: Pain. Denies: Retention (ileul conduit) Musculoskeletal: Reports: Back Pain, Hand Pain Skin: Reports: No Symptoms Psychiatric: Reports: No Symptoms Neurological: Denies: Numbness, Paresthesia, Tingling Hematologic/Lymphatic: Reports: No Symptoms Immunologic: Reports: No Symptoms Exam - Exam Exam: See Below - Vital Signs Vital Signs: Last Vital Signs Temp 97.2 F 01/25/21 07:32 Pulse 58 L 01/25/21 07:32 Resp 18 01/25/21 07:32 BP 113/51 L 01/25/21 07:32 Pulse Ox 100 01/25/21 07:32 Weight: 187 lb 11.2 oz - Exam Quality Assessment: No: Supplemental Oxygen General: Alert, Oriented, Cooperative. No: Mild Distress HEENT: Conjunctiva Clear, Mucosa Moist & [place] Neck: Supple Lungs: Clear to Auscultation, Normal Respiratory Effort Cardiovascular: Regular Rate, Regular Rhythm GI/Abdominal Exam: Normal Bowel Sounds, Soft, No Distention (Female) Exam: Deferred Rectal (Female) Exam: Deferred Back Exam: No: CVA Tenderness (L), CVA Tenderness (R) Extremities: No Pedal Edema, Other (drop foot bilateal ). No: Slow Capillary Refill, Pallor, Redness Peripheral Pulses: 2+: Radial (L), Radial (R) Skin: Warm, Dry, Intact Neurological: Normal Speech Neuro Extensive - Mental Status: Alert, Oriented x3, Normal Mood/Affect, Memory Intact Neuro Extensive - Motor, Sensory, Reflexes: CN II-XII Intact. No: Receptive Aphasia, Expressive Aphasia Psychiatric: Alert, Normal Affect, Normal Mood - Patient Data Lab Results Last 24 hrs: Laboratory Results - last 24 hr 01/24/21 Range/Units 13:45 SARS CoV-2 RNA Rapid W[place] Negative (NEGATIVE) Sepsis Event Note - Evaluation Sepsis Screening Result: No Definite Risk - Focused Exam Vital Signs: Vital Signs Temp Pulse Resp BP BP Pulse Ox 01/25/21 07:32 97.2 F 58 L 18 113/51 L 113/51 L 100 Problem List Initiated/Reviewed/Updated: Yes Orders Last 24hrs: Active Orders 24 hr Category Date Time Status Patient Status [ADT] Routine ADT 01/24/21 13:36 Active Antiembolic Devices [RC] 0900,2100 Care 01/24/21 17:09 Active Communication Order [RC] BID Care 01/24/21 21:00 Active Communication Order [RC] DAILY Care 01/24/21 14:11 Active Communication Order [RC] DAILY Care 01/24/21 14:17 Active Height and Weight [RC] Mo@0900 Care 01/24/21 14:54 Active Oxygen Therapy [RC] PRN Care 01/24/21 14:52 Active Up With Assistance [RC] ASDIRECTED Care 01/24/21 14:52 Active Vital Signs [RC] 0800,2000 Care 01/24/21 14:52 Active Consult to Case Management/Veneer Jointer Operator [CONS] Cons 01/24/21 14:52 Active Routine PT Evaluation and Treatment [CONS] Routine Cons 01/24/21 14:52 Active Regular Diet [DIET] Diet 01/24/21 Dinner Active Acetaminophen [Tylenol Arthritis Pain] Med 01/24/21 14:41 Active 650 mg PO Q8H PRN Acetaminophen/HYDROcodone [[place] 325-5 MG] Med 01/24/21 14:41 Active 1 tab PO Q4H PRN Ascorbic Acid [Vitamin C] Med 01/25/21 09:00 Active 500 mg PO Q48H Mmzxivs-Rjjlgbfox-Euauokn D Med 01/25/21 09:00 Active 2 tab PO DAILY ClonazePAM [KlonoPIN] Med 01/24/21 14:41 Active 1 mg PO BEDTIME PRN Cyclobenzaprine [Flexeril] Med 01/24/21 14:41 Active 10 mg PO TID PRN Dextran 70/Hypromellose [Artificial Tears] Med 01/24/21 14:41 Active 2 drop EYEBOTH QID PRN Diclofenac Sodium [Voltaren 1% Gel] Med 01/24/21 14:41 Active 2 gm TOP BID PRN Docusate Sodium [Colace] Med 01/25/21 09:00 Active 200 mg PO DAILY Ferrous Sulfate [Slow Release Iron] Med 01/25/21 09:00 Active 45 mg PO Q48H Fluticasone Propionate [Flonase] Med 01/25/21 09:00 Active 0 gm NASBOTH DAILY Gabapentin [Neurontin] Med 01/25/21 08:00 Active 200 mg PO DAILY@0800 Gabapentin [Neurontin] Med 01/24/21 16:00 Active 600 mg PO DAILY@1600 Gabapentin [Neurontin] Med 01/24/21 22:00 Active 900 mg PO BEDTIME@2200 Lidocaine 4% [LMX 4] Med 01/24/21 14:41 Active 1 applic TOP ASDIRECTED PRN Lutein [Lutein] Med 01/25/21 09:00 Active 20 mg PO DAILY Metoprolol Succinate [Toprol XL] Med 01/25/21 21:00 Active 50 mg PO BEDTIME Non-Formulary Medication [NF Drug] Med 01/25/21 09:00 Active 1 each PO DAILY Omeprazole Med 01/24/21 16:56 Active 20 mg PO DAILY PRN Ondansetron Med 01/24/21 14:41 Active 4 mg PO TID PRN Orlistat [Kenton] Med 01/25/21 13:00 Active 60 mg PO BID@1300,1900 Psyllium [Metamucil] Med 01/24/21 21:00 Active 0 gm PO BID Trolamine Salicylate/Aloe Vera [Aspercreme 10%] Med 01/24/21 14:41 Active 0 gm TOP DAILY PRN amLODIPine [Norvasc] Med 01/25/21 08:00 Active 7.5 mg PO DAILY@0800 diphenhydrAMINE [Benadryl] Med 01/24/21 15:55 Active 25 mg PO Q4H PRN traMADol [Ultram] Med 01/24/21 15:45 Active 100 mg PO TID PRN SCD [Sequential Compression Device] [OM.PC] Routine Oth 01/24/21 15:00 Ordered Weight bearing status [OM.PC] Routine Oth 01/24/21 14:14 Ordered Resuscitation Status Routine Resus Stat 01/24/21 14:52 Ordered Medication Orders Hydrocodone Bitart/Acetaminophen (Acetaminophen/Hydrocodone 325-5 Mg Tab - Ptom) 1 tab PO Q4H PRN PRN Reason: Pain Last Admin: 01/25/21 02:33 Dose: 1 tab Documented by: Admin: 01/24/21 22:15 Dose: 1 tab Documented by: SAMANTHA Amlodipine Besylate (Amlodipine 5 Mg Tab - Ptom) 7.5 mg PO DAILY@0800 [facility] Last Admin: 01/25/21 07:32 Dose: 7.5 mg Documented by: ISAI Cyclobenzaprine HCl (Cyclobenzaprine 10 Mg Tab - Ptom) 10 mg PO TID PRN PRN Reason: Muscle Spasm Diclofenac Sodium (Diclofenac Sodium 1% Gel 100 Gm Tube - Ptom) 2 gm TOP BID PRN PRN Reason: Pain Diphenhydramine HCl (Diphenhydramine 25 Mg Cap - Ptom) 25 mg PO Q4H PRN PRN Reason: ITCHING Docusate Sodium (Docusate Sodium 100 Mg CapOwn Med) 200 mg PO DAILY [facility] Last Admin: 01/25/21 09:39 Dose: 200 mg Documented by: ISAI Fluticasone Propionate (Fluticasone Propionate Nasal [place] - Ptom) 0 gm NASBOTH DAILY [facility] Last Admin: 01/25/21 09:36 Dose: 1 spray Documented by: ISAI Gabapentin (Gabapentin 100 Mg Cap - Ptom) 200 mg PO DAILY@0800 [facility] Last Admin: 01/25/21 07:31 Dose: 200 mg Documented by: ISAI Gabapentin (Gabapentin 300 Mg Cap - Ptom) 600 mg PO DAILY@1600 [facility] Last Admin: 01/24/21 16:13 Dose: 600 mg Documented by: GARY Gabapentin (Gabapentin 300 Mg Cap - Ptom) 900 mg PO BEDTIME@2200 [facility] Last Admin: 01/24/21 22:00 Dose: 900 mg Documented by: SAMANTHA Metoprolol Succinate (Metoprolol Succinate 50 Mg Tab.Er - Ptom) 50 mg PO BEDTIME [facility] Daily Fiber Capsule ((Psyllium) - Ptom) 0 gm PO BID [facility] Last Admin: 01/25/21 09:37 Dose: 2 gm Documented by: Admin: 01/24/21 21:45 Dose: 2 gm Documented by: SAMANTHA Ondansetron 4 Mg (Tablet - Ptom) 4 mg PO TID PRN PRN Reason: Nausea Lutein 20 Mg Capsule (- Ptom) 20 mg PO DAILY [facility] Last Admin: 01/25/21 09:38 Dose: 20 mg Documented by: ISAI Aspercreme With (Lidocaine 4% - Ptom) 1 applic TOP ASDIRECTED PRN PRN Reason: Pain Methyl Folate (1000mcg - Ptom) 1 each PO DAILY [facility] Last Admin: 01/25/21 09:35 Dose: 1 each Documented by: ISAI Slow Fe (45mg Elemental Iron) - Ptom 45 mg PO Q48H [facility] Last Admin: 01/25/21 09:35 Dose: 45 mg Documented by: ISAI Systane Eye Drops - (Ptom) 2 drop EYEBOTH QID PRN PRN Reason: Dry Eyes Clonazepam [Klonopin ] 0.5 Mg Tablet - Ptom 1 mg PO BEDTIME PRN PRN Reason: restless legs Calcium 1200mg/25mcg Vitamin D (Per 2 Tab) - Ptom 2 tab PO DAILY [facility] Last Admin: 01/25/21 09:38 Dose: 2 tab Documented by: ISAI Ascorbic Acid [ Vitamin C] 500 Mg Tablet - Ptom 500 mg PO Q48H [facility] Last Admin: 01/25/21 09:34 Dose: 500 mg Documented by: ISAI Acetaminophen 650 Mg (Tab.Er - Ptom) 650 mg PO Q8H PRN PRN Reason: Pain Last Admin: 01/25/21 09:33 Dose: 650 mg Documented by: ISAI Orlistat [Kenton] 60 (Mg Capsule - Ptom) 60 mg PO BID@1300,1900 [facility] Omeprazole (Omeprazole 20 Mg Cap.Cr) 20 mg PO DAILY PRN PRN Reason: Other Tramadol HCl (Tramadol 50 Mg Tab - Ptom) 100 mg PO TID PRN PRN Reason: Pain (moderate 4-6) Last Admin: 01/25/21 07:33 Dose: 100 mg Documented by: Admin: 01/24/21 16:11 Dose: 100 mg Documented by: GARY Trolamine Salicylate (Aspercreme (Trolamine Salicylate 10%) - Ptom) 0 gm TOP DAILY PRN PRN Reason: Pain Assessment/Plan Comment:: History of present illness Anna is a 60-year-old female who was transferred into private pay swing bed therapy after she underwent surgery by Dr Rock Breaux, to her left ring finger at [facility]. Underwent regional block to correct left ring finger as she had developed a swan-neck deformity. Due to the patient's chronic medical history coupled now with left arm sling greatly limits her ability to perform basic ADLs Primary swing bed problems Status post surgical correction left ring finger swan neck deformity Chronic/stable problems Hypertension, at bedtime metoprolol Hyperlipidemia Reactive airway disease, without asthma Iron Deficiency anemia, iron with vitamin C Chronic pain syndrome, lumbar/hips, Osteoporosis Iluel conduit, own supplies at bedside; education to nursing staff about cares Rheumatoid arthritis, seronegative, Remicade tx, Restless leg syndrome, gets relief with SCDs Environmental allergies, Flonase Tortuous colon with slow transit constipation History of adrenal insufficiency Gout Without tophus Hx gastritis, NSAID induced, recently tapered off PPI, now as needed Recent Herpes Zoster, treated with antiviral Dropfoot, bracing Fibromyalgia Disposition/overall plan --Was admitted into private pay swing bed for physical therapy as she will need to be eval for chronic lumbar/sciatica pain --CODE STATUS, full code --Appointment Sunday, January 26 [facility] hand surgery follow-up/dressing change --PT consult placed - Mortality Measure Prognosis:: Good
[2021-01-25] MEDS: GABAPENTIN 300 MG PO SCH ×2 (15:44→21:10)
[2021-01-25] MEDS: Metoprolol Succinate 50 MG Tab.ER - PTOM PO SCH (21:19)
[2021-01-26] MEDS: ACETAMINOPHEN PO PRN ×3 (02:51→18:41)
[2021-01-26] MEDS: HYDROCODONE PO PRN ×3 (02:51→18:41)
[2021-01-26] MEDS: CYCLOBENZAPRINE 10 MG PO PRN ×2 (05:52→16:19)
[2021-01-26] MEDS: DICLOFENAC SODIUM 1% TOP PRN (05:52)
[2021-01-26] MEDS: FLUTICASONE PROPIONATE NASBOTH SCH (08:08)
[2021-01-26] MEDS: AMLODIPINE 5 MG PO SCH (08:09)
[2021-01-26] MEDS: Docusate Sodium 100 MG Cap**OWN MED PO SCH (08:10)
[2021-01-26] MEDS: VITAMIN D PO SCH (08:10)
[2021-01-26] MEDS: CALCIUM PO SCH (08:10)
[2021-01-26] MEDS: LUTEIN 20 MG PO SCH (08:11)
[2021-01-26] MEDS: DAILY FIBER PO SCH ×2 (08:11→20:49)
[2021-01-26] MEDS: SYSTANE EYE EYEBOTH PRN (08:15)
[2021-01-26] MEDS: GABAPENTIN 100 MG PO SCH (08:17)
[2021-01-26] MEDS: METHYL FOLATE 1000 MCG PO SCH (08:17)
[2021-01-26] MEDS: traMADol 50 MG Tab - PTOM PO PRN (12:30)
[2021-01-26] MEDS: ORLISTAT PO SCH ×2 (12:39→18:03)
[2021-01-26] MEDS: GABAPENTIN 300 MG PO SCH ×2 (16:09→21:36)
[2021-01-26] MEDS: Metoprolol Succinate 50 MG Tab.ER - PTOM PO SCH (20:51)
[2021-01-27] MEDS: CYCLOBENZAPRINE 10 MG PO PRN ×2 (03:00→17:23)
[2021-01-27] MEDS: DICLOFENAC SODIUM 1% TOP PRN (03:00)
[2021-01-27] MEDS: traMADol 50 MG Tab - PTOM PO PRN ×2 (05:11→12:37)
[2021-01-27] MEDS: AMLODIPINE 5 MG PO SCH (08:38)
[2021-01-27] MEDS: ASCORBIC ACID 500 MG PO SCH (08:38)
[2021-01-27] MEDS: VITAMIN D PO SCH (08:40)
[2021-01-27] MEDS: CALCIUM PO SCH (08:40)
[2021-01-27] MEDS: METHYL FOLATE 1000 MCG PO SCH (08:41)
[2021-01-27] MEDS: LUTEIN 20 MG PO SCH (08:41)
[2021-01-27] MEDS: SLOW FE PO SCH (08:41)
[2021-01-27] MEDS: DAILY FIBER PO SCH ×3 (08:43→20:39)
[2021-01-27] MEDS: Docusate Sodium 100 MG Cap**OWN MED PO SCH (08:43)
[2021-01-27] MEDS: FLUTICASONE PROPIONATE NASBOTH SCH (08:44)
[2021-01-27] MEDS: GABAPENTIN 100 MG PO SCH (08:45)
[2021-01-27] MEDS: ORLISTAT PO SCH ×2 (12:38→19:01)
[2021-01-27] MEDS: GABAPENTIN 300 MG PO SCH ×3 (15:57→21:00)
[2021-01-27] MEDS: HYDROCODONE PO PRN (17:23)
[2021-01-27] MEDS: ACETAMINOPHEN PO PRN (17:23)
[2021-01-27] MEDS: Metoprolol Succinate 50 MG Tab.ER - PTOM PO SCH (19:59)
[2021-01-28] MEDS: CYCLOBENZAPRINE 10 MG PO PRN ×3 (03:16→20:37)
[2021-01-28] MEDS: DICLOFENAC SODIUM 1% TOP PRN (03:16)
[2021-01-28] MEDS: traMADol 50 MG Tab - PTOM PO PRN ×2 (05:30→16:07)
[2021-01-28] MEDS: ASPERCREME TOP PRN (06:44)
[2021-01-28] MEDS: VITAMIN D PO SCH (09:13)
[2021-01-28] MEDS: CALCIUM PO SCH (09:13)
[2021-01-28] MEDS: Docusate Sodium 100 MG Cap**OWN MED PO SCH (09:14)
[2021-01-28] MEDS: FLUTICASONE PROPIONATE NASBOTH SCH (09:15)
[2021-01-28] MEDS: DAILY FIBER PO SCH ×2 (09:15→20:29)
[2021-01-28] MEDS: METHYL FOLATE 1000 MCG PO SCH (09:16)
[2021-01-28] MEDS: AMLODIPINE 5 MG PO SCH (09:17)
[2021-01-28] MEDS: LUTEIN 20 MG PO SCH (09:17)
[2021-01-28] MEDS: GABAPENTIN 100 MG PO SCH (09:23)
[2021-01-28] MEDS: ORLISTAT PO SCH ×2 (12:42→18:02)
[2021-01-28] MEDS: ASPERCREME WITH LIDOCAINE TOP PRN (14:20)
[2021-01-28] MEDS: GABAPENTIN 300 MG PO SCH ×2 (16:07→21:07)
[2021-01-28] MEDS: Metoprolol Succinate 50 MG Tab.ER - PTOM PO SCH (20:37)
[2021-01-29] MEDS: SYSTANE EYE EYEBOTH PRN ×2 (01:03→16:32)
[2021-01-29] MEDS: ACETAMINOPHEN PO PRN (03:59)
[2021-01-29] MEDS: HYDROCODONE PO PRN (03:59)
[2021-01-29] MEDS: VITAMIN D PO SCH (08:25)
[2021-01-29] MEDS: CALCIUM PO SCH (08:25)
[2021-01-29] MEDS: AMLODIPINE 5 MG PO SCH (08:26)
[2021-01-29] MEDS: ASCORBIC ACID 500 MG PO SCH (08:27)
[2021-01-29] MEDS: DAILY FIBER PO SCH ×2 (08:28→21:50)
[2021-01-29] MEDS: LUTEIN 20 MG PO SCH (08:29)
[2021-01-29] MEDS: Docusate Sodium 100 MG Cap**OWN MED PO SCH (08:29)
[2021-01-29] MEDS: METHYL FOLATE 1000 MCG PO SCH (08:30)
[2021-01-29] MEDS: SLOW FE PO SCH (08:33)
[2021-01-29] MEDS: FLUTICASONE PROPIONATE NASBOTH SCH (08:35)
[2021-01-29] MEDS: GABAPENTIN 100 MG PO SCH (08:38)
[2021-01-29] MEDS: traMADol 50 MG Tab - PTOM PO PRN ×2 (10:08→19:19)
[2021-01-29] MEDS: ORLISTAT PO SCH ×2 (12:07→18:18)
[2021-01-29] MEDS: CYCLOBENZAPRINE 10 MG PO PRN ×2 (14:55→21:43)
[2021-01-29] MEDS: GABAPENTIN 300 MG PO SCH ×2 (16:27→21:43)
[2021-01-29] MEDS: Metoprolol Succinate 50 MG Tab.ER - PTOM PO SCH (21:43)
[2021-01-29] MEDS: ASPERCREME TOP PRN (21:43)
[2021-01-30] MEDS: CALCIUM PO SCH (08:20)
[2021-01-30] MEDS: GABAPENTIN 100 MG PO SCH (08:20)
[2021-01-30] MEDS: VITAMIN D PO SCH (08:20)
[2021-01-30] MEDS: Docusate Sodium 100 MG Cap**OWN MED PO SCH (08:21)
[2021-01-30] MEDS: FLUTICASONE PROPIONATE NASBOTH SCH (08:21)
[2021-01-30] MEDS: AMLODIPINE 5 MG PO SCH (08:22)
[2021-01-30] MEDS: METHYL FOLATE 1000 MCG PO SCH (08:23)
[2021-01-30] MEDS: DAILY FIBER PO SCH ×2 (08:24→21:40)
[2021-01-30] MEDS: LUTEIN 20 MG PO SCH (08:24)
[2021-01-30] MEDS: traMADol 50 MG Tab - PTOM PO PRN ×2 (10:21→20:22)
[2021-01-30] MEDS: DICLOFENAC SODIUM 1% TOP PRN (10:37)
[2021-01-30] MEDS: ASPERCREME WITH LIDOCAINE TOP PRN (10:42)
[2021-01-30] MEDS: ORLISTAT PO SCH ×2 (13:19→18:22)
[2021-01-30] MEDS: GABAPENTIN 300 MG PO SCH ×2 (16:01→21:41)
[2021-01-30] MEDS: CYCLOBENZAPRINE 10 MG PO PRN (16:12)
[2021-01-30] MEDS ORDERED: ASPERCREME WITH LIDOCAINE TOP PRN (16:54)
[2021-01-30] MEDS: Metoprolol Succinate 50 MG Tab.ER - PTOM PO SCH (21:40)
[2021-01-30] MEDS: Trolamine Salicylate/Aloe Vera 10% Crm 85 GM Tube TOP PRN (21:41)
[2021-01-31] MEDS: CYCLOBENZAPRINE 10 MG PO PRN ×2 (06:09→21:39)
[2021-01-31] MEDS: SYSTANE EYE EYEBOTH PRN (06:13)
[2021-01-31] MEDS: GABAPENTIN 100 MG PO SCH (08:16)
[2021-01-31] MEDS: ASCORBIC ACID 500 MG PO SCH (08:16)
[2021-01-31] MEDS: Docusate Sodium 100 MG Cap**OWN MED PO SCH (08:17)
[2021-01-31] MEDS: CALCIUM PO SCH (08:17)
[2021-01-31] MEDS: VITAMIN D PO SCH (08:17)
[2021-01-31] MEDS: LUTEIN 20 MG PO SCH (08:18)
[2021-01-31] MEDS: METHYL FOLATE 1000 MCG PO SCH (08:19)
[2021-01-31] MEDS: FLUTICASONE PROPIONATE NASBOTH SCH (08:19)
[2021-01-31] MEDS: SLOW FE PO SCH (08:20)
[2021-01-31] MEDS: DAILY FIBER PO SCH ×2 (08:21→20:35)
[2021-01-31] MEDS: AMLODIPINE 5 MG PO SCH (08:22)
[2021-01-31] MEDS: Trolamine Salicylate/Aloe Vera 10% Crm 85 GM Tube TOP PRN (10:25)
[2021-01-31] MEDS: traMADol 50 MG Tab - PTOM PO PRN ×2 (10:26→21:39)
[2021-01-31] MEDS: ORLISTAT PO SCH ×2 (14:14→19:27)
[2021-01-31] MEDS: GABAPENTIN 300 MG PO SCH ×2 (17:08→21:39)
[2021-01-31] MEDS: Metoprolol Succinate 50 MG Tab.ER - PTOM PO SCH (20:35)
[2021-02-01] MEDS: SYSTANE EYE EYEBOTH PRN (04:53)
[2021-02-01] MEDS: DAILY FIBER PO SCH ×2 (08:19→21:33)
[2021-02-01] MEDS: Docusate Sodium 100 MG Cap**OWN MED PO SCH (08:19)
[2021-02-01] MEDS: METHYL FOLATE 1000 MCG PO SCH (08:20)
[2021-02-01] MEDS: GABAPENTIN 100 MG PO SCH (08:21)
[2021-02-01] MEDS: ACETAMINOPHEN PO PRN ×2 (08:22→21:34)
[2021-02-01] MEDS: HYDROCODONE PO PRN ×2 (08:22→21:34)
[2021-02-01] MEDS: AMLODIPINE 5 MG PO SCH (08:24)
[2021-02-01] MEDS: FLUTICASONE PROPIONATE NASBOTH SCH (08:24)
[2021-02-01] MEDS: LUTEIN 20 MG PO SCH (08:25)
[2021-02-01] MEDS: CALCIUM PO SCH (08:25)
[2021-02-01] MEDS: VITAMIN D PO SCH (08:25)
[2021-02-01] MEDS: ORLISTAT PO SCH ×2 (12:55→18:28)
[2021-02-01] MEDS: traMADol 50 MG Tab - PTOM PO PRN (14:53)
[2021-02-01] MEDS: GABAPENTIN 300 MG PO SCH ×2 (15:00→21:33)
[2021-02-01] MEDS: CYCLOBENZAPRINE 10 MG PO PRN (19:59)
[2021-02-01] MEDS: Metoprolol Succinate 50 MG Tab.ER - PTOM PO SCH (21:36)
[2021-02-02] MEDS: SYSTANE EYE EYEBOTH PRN ×2 (01:40→15:25)
[2021-02-02] MEDS: CYCLOBENZAPRINE 10 MG PO PRN ×2 (05:48→20:59)
[2021-02-02] MEDS: GABAPENTIN 100 MG PO SCH (08:09)
[2021-02-02] MEDS: AMLODIPINE 5 MG PO SCH (08:10)
[2021-02-02] MEDS: DAILY FIBER PO SCH ×2 (08:11→20:55)
[2021-02-02] MEDS: METHYL FOLATE 1000 MCG PO SCH (08:12)
[2021-02-02] MEDS: Docusate Sodium 100 MG Cap**OWN MED PO SCH (08:12)
[2021-02-02] MEDS: SLOW FE PO SCH (08:13)
[2021-02-02] MEDS: ASCORBIC ACID 500 MG PO SCH (08:13)
[2021-02-02] MEDS: CALCIUM PO SCH (08:14)
[2021-02-02] MEDS: VITAMIN D PO SCH (08:14)
[2021-02-02] MEDS: LUTEIN 20 MG PO SCH (08:14)
[2021-02-02] MEDS: FLUTICASONE PROPIONATE NASBOTH SCH (08:14)
[2021-02-02] MEDS: traMADol 50 MG Tab - PTOM PO PRN ×2 (08:52→16:10)
[2021-02-02] MEDS: ORLISTAT PO SCH ×2 (12:51→18:26)
[2021-02-02] MEDS: GABAPENTIN 300 MG PO SCH ×2 (16:08→20:59)
[2021-02-02] MEDS: DICLOFENAC SODIUM 1% TOP PRN (16:11)
[2021-02-02] MEDS: Metoprolol Succinate 50 MG Tab.ER - PTOM PO SCH (20:56)
[2021-02-03] MEDS: traMADol 50 MG Tab - PTOM PO PRN ×3 (03:47→21:15)
[2021-02-03] MEDS: DICLOFENAC SODIUM 1% TOP PRN (03:48)
[2021-02-03] MEDS: GABAPENTIN 100 MG PO SCH (08:09)
[2021-02-03] MEDS: CALCIUM PO SCH (08:10)
[2021-02-03] MEDS: VITAMIN D PO SCH (08:10)
[2021-02-03] MEDS: AMLODIPINE 5 MG PO SCH (08:10)
[2021-02-03] MEDS: FLUTICASONE PROPIONATE NASBOTH SCH (08:11)
[2021-02-03] MEDS: METHYL FOLATE 1000 MCG PO SCH (08:11)
[2021-02-03] MEDS: LUTEIN 20 MG PO SCH (08:11)
[2021-02-03] MEDS: Docusate Sodium 100 MG Cap**OWN MED PO SCH (08:12)
[2021-02-03] MEDS: DAILY FIBER PO SCH ×2 (08:13→21:13)
[2021-02-03] MEDS: CYCLOBENZAPRINE 10 MG PO PRN ×2 (08:29→18:37)
[2021-02-03] MEDS: ORLISTAT PO SCH ×2 (13:17→18:37)
[2021-02-03] MEDS: GABAPENTIN 300 MG PO SCH ×2 (16:28→21:15)
[2021-02-03] MEDS: Metoprolol Succinate 50 MG Tab.ER - PTOM PO SCH (21:19)
[2021-02-04] MEDS: SYSTANE EYE EYEBOTH PRN (05:05)
[2021-02-04] MEDS: GABAPENTIN 100 MG PO SCH (07:36)
[2021-02-04] MEDS: CYCLOBENZAPRINE 10 MG PO PRN (07:37)
[2021-02-04] MEDS: DAILY FIBER PO SCH ×2 (08:35→21:17)
[2021-02-04] MEDS: Docusate Sodium 100 MG Cap**OWN MED PO SCH (08:36)
[2021-02-04] MEDS: LUTEIN 20 MG PO SCH (08:36)
[2021-02-04] MEDS: METHYL FOLATE 1000 MCG PO SCH (08:36)
[2021-02-04] MEDS: AMLODIPINE 5 MG PO SCH (08:37)
[2021-02-04] MEDS: SLOW FE PO SCH (08:39)
[2021-02-04] MEDS: ASCORBIC ACID 500 MG PO SCH (08:40)
[2021-02-04] MEDS: CALCIUM PO SCH (08:40)
[2021-02-04] MEDS: VITAMIN D PO SCH (08:40)
[2021-02-04] MEDS: FLUTICASONE PROPIONATE NASBOTH SCH (08:43)
[2021-02-04] MEDS: ORLISTAT PO SCH ×2 (13:03→18:00)
[2021-02-04] MEDS: HYDROCODONE PO PRN (14:11)
[2021-02-04] MEDS: ACETAMINOPHEN PO PRN (14:11)
[2021-02-04] MEDS ORDERED: TRIAMCINOLONE ACETONIDE 0.1% TOP PRN (14:31)
[2021-02-04] MEDS: GABAPENTIN 300 MG PO SCH ×2 (15:05→21:16)
[2021-02-04] MEDS: Metoprolol Succinate 50 MG Tab.ER - PTOM PO SCH (21:16)
[2021-02-04] MEDS: traMADol 50 MG Tab - PTOM PO PRN (21:16)
[2021-02-05] MEDS: SYSTANE EYE EYEBOTH PRN (04:44)
[2021-02-05] MEDS: GABAPENTIN 100 MG PO SCH (09:04)
[2021-02-05] MEDS: AMLODIPINE 5 MG PO SCH (09:05)
[2021-02-05] MEDS: VITAMIN D PO SCH (09:07)
[2021-02-05] MEDS: CALCIUM PO SCH (09:07)
[2021-02-05] MEDS: FLUTICASONE PROPIONATE NASBOTH SCH (09:08)
[2021-02-05] MEDS: LUTEIN 20 MG PO SCH (09:08)
[2021-02-05] MEDS: Docusate Sodium 100 MG Cap**OWN MED PO SCH (09:08)
[2021-02-05] MEDS: METHYL FOLATE 1000 MCG PO SCH (09:09)
[2021-02-05] MEDS: DAILY FIBER PO SCH ×2 (09:09→21:30)
[2021-02-05] MEDS: CYCLOBENZAPRINE 10 MG PO PRN (09:10)
[2021-02-05] MEDS: ORLISTAT PO SCH ×2 (12:23→18:24)
[2021-02-05] MEDS: traMADol 50 MG Tab - PTOM PO PRN (15:43)
[2021-02-05] MEDS: GABAPENTIN 300 MG PO SCH ×2 (15:45→21:36)
[2021-02-05] MEDS: ACETAMINOPHEN PO PRN (21:28)
[2021-02-05] MEDS: HYDROCODONE PO PRN (21:28)
[2021-02-05] MEDS: Metoprolol Succinate 50 MG Tab.ER - PTOM PO SCH (21:29)
[2021-02-06] MEDS: LUTEIN 20 MG PO SCH (08:08)
[2021-02-06] MEDS: AMLODIPINE 5 MG PO SCH (08:09)
[2021-02-06] MEDS: ASCORBIC ACID 500 MG PO SCH (08:09)
[2021-02-06] MEDS: GABAPENTIN 100 MG PO SCH (08:09)
[2021-02-06] MEDS: SLOW FE PO SCH (08:10)
[2021-02-06] MEDS: Docusate Sodium 100 MG Cap**OWN MED PO SCH (08:11)
[2021-02-06] MEDS: VITAMIN D PO SCH (08:11)
[2021-02-06] MEDS: FLUTICASONE PROPIONATE NASBOTH SCH (08:11)
[2021-02-06] MEDS: CALCIUM PO SCH (08:11)
[2021-02-06] MEDS: CYCLOBENZAPRINE 10 MG PO PRN (08:12)
[2021-02-06] MEDS: DAILY FIBER PO SCH ×2 (08:12→21:33)
[2021-02-06] MEDS: METHYL FOLATE 1000 MCG PO SCH (08:12)
[2021-02-06] MEDS: traMADol 50 MG Tab - PTOM PO PRN (13:13)
[2021-02-06] MEDS: ORLISTAT PO SCH ×2 (13:13→18:30)
[2021-02-06] MEDS: GABAPENTIN 300 MG PO SCH ×2 (18:30→22:44)
[2021-02-06] MEDS: Metoprolol Succinate 50 MG Tab.ER - PTOM PO SCH (21:34)
[2021-02-06] MEDS: HYDROCODONE PO PRN (21:35)
[2021-02-06] MEDS: ACETAMINOPHEN PO PRN (21:35)
[2021-02-07] MEDS: SYSTANE EYE EYEBOTH PRN (06:27)
[2021-02-07] MEDS: GABAPENTIN 100 MG PO SCH (07:51)
[2021-02-07] MEDS: traMADol 50 MG Tab - PTOM PO PRN (07:52)
[2021-02-07] MEDS: AMLODIPINE 5 MG PO SCH (07:53)
[2021-02-07] MEDS: LUTEIN 20 MG PO SCH (08:34)
[2021-02-07] MEDS: VITAMIN D PO SCH (08:34)
[2021-02-07] MEDS: FLUTICASONE PROPIONATE NASBOTH SCH (08:34)
[2021-02-07] MEDS: CALCIUM PO SCH (08:34)
[2021-02-07] MEDS: Docusate Sodium 100 MG Cap**OWN MED PO SCH (08:35)
[2021-02-07] MEDS: DAILY FIBER PO SCH (08:35)
[2021-02-07] MEDS: METHYL FOLATE 1000 MCG PO SCH (08:36)
--- NOTE | 2021-02-07 09:12 | PCM.DCSUM1 ---
Discharge Summary - Hospital Course Free Text/Narrative:: Date of admission: 01/25/2021 Date of discharge: 02/07/2021 Admission diagnoses: # Debility # S/P surgical correction swan neck deformity Discharge diagnoses: # Debility, resolved # S/P surgical correction swan neck deformity # Hypertension # Hyperlipidemia # Reactive airway disease, without asthma # Iron Deficiency anemia # Chronic pain syndrome, lumbar/hips, # Osteoporosis # Ileal conduit # Rheumatoid arthritis # Restless leg syndrome # Environmental allergies # Tortuous colon with slow transit constipation # History of adrenal insufficiency # Gout Without tophus # Hx gastritis, NSAID induced # Recent Herpes Zoster # Dropfoot, bracing # Fibromyalgia Consultations: None Procedures: None Hospital course: Anna is a 60-year-old female who was transferred into private pay swing bed therapy after she underwent surgery by Dr Rock Breaux, to her left ring finger at [facility]. Underwent regional block to correct left ring finger as she had developed a swan-neck deformity. Due to the patient's chronic medical history coupled now with left arm sling greatly limited her ability to perform basic ADLs. She reports physical therapy has helped her immensely in the hospital and is ready for discharge home. Discharge and follow-up recommendations: - Discharge to home - New medications at discharge: none - Follow-up as needed - Discharge Data Discharge Date: 02/07/21 Discharge Disposition: Home, Self-Care 01 Condition: Good - Referral to Home Health Primary Care Physician: Sierra Leblanc NP - Patient Summary/Data Consults: Consultations 01/24/21 14:52 Consult to Case Management/Jewel Diameter Gauger [CONS] Routine PT Evaluation and Treatment [CONS] Routine - Patient Instructions Diet: Usual Diet as Tolerated Activity: As Tolerated Activity, Other: Physical therapy as outpatient Notify Provider of: Fever, Increased Pain, Nausea and/or Vomiting Other/Special Instructions: Increasing weakness - Discharge Plan *PRESCRIPTION DRUG MONITORING PROGRAM REVIEWED*: Not Applicable *COPY OF PRESCRIPTION DRUG MONITORING REPORT IN PATIENT JESSICA: Not Applicable Home Medications: Home Meds Acetaminophen [Pain Relief Extra Strength] 500 mg PO BID PRN 05/30/19 [History] Acetaminophen [Tylenol Arthritis Pain] 650 mg PO Q8H PRN 05/30/19 [History] Albuterol [Ventolin HFA] 2 puff INH Q4H PRN 05/30/19 [History] Gthpypt-Wzfbpzhql-Yidkjfm D 2 tab PO DAILY 05/30/19 [History] Clobetasol [Temovate 0.05%] 25 ml TOP BID 05/30/19 [History] Cyclobenzaprine [Flexeril] 10 mg PO TID PRN 05/30/19 [History] Dextran 70/Hypromellose [Artificial Tears] 1 - 2 drop EYEBOTH QID PRN 05/30/19 [History] Folic Acid 1 mg PO DAILY 05/30/19 [History] Gabapentin [Neurontin] 200 mg PO DAILY 05/30/19 [History] Gabapentin [Neurontin] 600 mg PO DAILY@1600 05/30/19 [History] Gabapentin [Neurontin] 900 mg PO BEDTIME 05/30/19 [History] Lutein 20 mg PO DAILY 05/30/19 [History] Menthol [Biofreeze] 1 applic TP BID PRN 05/30/19 [History] Metoprolol Succinate 50 mg PO DAILY 05/30/19 [History] Nystatin [Nystop] 1 applic TOP TID PRN 05/30/19 [History] Ondansetron [Zofran] 4 mg PO TID PRN 05/30/19 [History] Tumeric 500 mg PO BID 05/30/19 [History] Zoledronic Acid in Water [Reclast] 5 mg IV Q12M 05/30/19 [History] traMADol HCl [Tramadol HCl] 50 - 100 mg PO TID PRN 05/30/19 [History] Albuterol [Ventolin HFA] 1 - 2 puff INH Q4HR PRN 01/24/21 [History] Docusate Sodium 200 mg PO DAILY 01/24/21 [History] Fluticasone Propionate [Flonase] 1 spray NASBOTH DAILY 01/24/21 [History] Hydrocodone/Acetaminophen [Hydrocodone-Acetamin 5-325 mg] 1 tab PO Q4H PRN 01/24/21 [History] InFLIXimab [Remicade] 100 mg IV ASDIRECTED 01/24/21 [History] Ketotifen [Ketotifen 0.025% Ophth Soln] 5 ml EYEBOTH BID PRN 01/24/21 [History] Lidocaine 4% [LMX 4] 1 applic TOP ASDIRECTED PRN 01/24/21 [History] Omeprazole 20 mg PO DAILY PRN 01/24/21 [History] Orlistat [Kenton] 60 mg PO BID 01/24/21 [History] Psyllium [Metamucil] 1.04 gm PO BID 01/24/21 [History] Trolamine Salicylate 85 gm TP DAILY PRN 01/24/21 [History] amLODIPine [Norvasc] 7.5 mg PO DAILY 01/24/21 [History] Triamcinolone Acetonide [Triamcinolone Acetonide 0.1% Crm] 1 applic TOP TID PRN 02/04/21 [History] Ascorbic Acid [Vitamin C] 500 mg PO Q48H 02/06/21 [Rx] ClonazePAM [KlonoPIN] 1 mg PO BEDTIME PRN 02/06/21 [Rx] Diclofenac Sodium [Voltaren 1% Gel] 2 gm TOP BID PRN tube 02/06/21 [Rx] Ferrous Sulfate [Slow Release Iron] 45 mg PO Q48H 02/06/21 [Rx] diphenhydrAMINE [Benadryl] 25 mg PO Q4H PRN cap 02/06/21 [Rx] Referrals: Sierra Leblanc, [employer] MANAGER [Primary Care Provider] - (in one week) - Discharge Summary/Plan Comment DC Time >30 min.: Yes - General Info Date of Service: 02/07/21 Functional Status: Reports: Pain Controlled, Tolerating Diet, Ambulating, Urinating. Denies: New Symptoms - Review of Systems General: Denies: Fever, Fatigue, Chills HEENT: Reports: Glasses. Denies: Headaches, Sore Throat Pulmonary: Denies: Shortness of Breath, Cough, Wheezing Cardiovascular: Denies: Chest Pain, Palpitations, Lightheadedness Gastrointestinal: Denies: Abdominal Pain, Constipation, Diarrhea Genitourinary: Denies: Dysuria, Urgency, Hematuria Musculoskeletal: Denies: Neck Pain, Hand Pain, Joint Swelling Skin: Denies: Dryness, Bruising, Rash Neurological: Denies: Dizziness, Headache, Pre-Existing Deficit Psychiatric: Denies: Confusion, Anxiety, Agitation - Patient Data Vitals - Most Recent: Last Vital Signs Temp 36.4 C 02/07/21 07:58 Pulse 70 02/07/21 07:58 Resp 16 02/07/21 07:58 BP 113/67 02/07/21 07:58 Pulse Ox 100 02/07/21 07:58 Weight - Most Recent: 84.504 kg I&O - Last 24 hours: Intake & Output 02/06/21 02/07/21 02/07/21 22:59 06:59 14:59 Intake Total 440 360 Output Total 1000 700 Balance -560 -340 Med Orders - Current: Current Medications Hydrocodone Bitart/Acetaminophen (Acetaminophen/Hydrocodone 325-5 Mg Tab - Ptom) 1 tab PO Q4H PRN PRN Reason: Pain Last Admin: 02/06/21 21:35 Dose: 1 tab Documented by: Amlodipine Besylate (Amlodipine 5 Mg Tab - Ptom) 7.5 mg PO DAILY@0800 [facility] Last Admin: 02/07/21 07:53 Dose: 7.5 mg Documented by: Cyclobenzaprine HCl (Cyclobenzaprine 10 Mg Tab - Ptom) 10 mg PO TID PRN PRN Reason: Muscle Spasm Last Admin: 02/06/21 08:12 Dose: 10 mg Documented by: Diclofenac Sodium (Diclofenac Sodium 1% Gel 100 Gm Tube - Ptom) 2 gm TOP BID PRN PRN Reason: Pain Last Admin: 02/03/21 03:48 Dose: 1 applic Documented by: Diphenhydramine HCl (Diphenhydramine 25 Mg Cap - Ptom) 25 mg PO Q4H PRN PRN Reason: ITCHING Last Admin: 01/30/21 15:59 Dose: 25 mg Documented by: Docusate Sodium (Docusate Sodium 100 Mg CapOwn Med) 200 mg PO DAILY [facility] Last Admin: 02/07/21 08:35 Dose: Not Given Documented by: Fluticasone Propionate (Fluticasone Propionate Nasal Mora - Ptom) 0 gm NASBOTH DAILY [facility] Last Admin: 02/07/21 08:34 Dose: 1 spray Documented by: Gabapentin (Gabapentin 100 Mg Cap - Ptom) 200 mg PO DAILY@0800 [facility] Last Admin: 02/07/21 07:51 Dose: 200 mg Documented by: Gabapentin (Gabapentin 300 Mg Cap - Ptom) 600 mg PO DAILY@1600 [facility] Last Admin: 02/06/21 18:30 Dose: 600 mg Documented by: Gabapentin (Gabapentin 300 Mg Cap - Ptom) 900 mg PO BEDTIME@2200 [facility] Last Admin: 02/06/21 22:44 Dose: 900 mg Documented by: Metoprolol Succinate (Metoprolol Succinate 50 Mg Tab.Er - Ptom) 50 mg PO BEDTIME [facility] Last Admin: 02/06/21 21:34 Dose: 50 mg Documented by: Daily Fiber Capsule ((Psyllium) - Ptom) 0 gm PO BID [facility] Last Admin: 02/07/21 08:35 Dose: Not Given Documented by: Ondansetron 4 Mg (Tablet - Ptom) 4 mg PO TID PRN PRN Reason: Nausea Last Admin: 01/28/21 09:15 Dose: 4 mg Documented by: Lutein 20 Mg Capsule (- Ptom) 20 mg PO DAILY [facility] Last Admin: 02/07/21 08:34 Dose: 20 mg Documented by: Methyl Folate (1000mcg - Ptom) 1 each PO DAILY [facility] Last Admin: 02/07/21 08:36 Dose: 1 each Documented by: Slow Fe (45mg Elemental Iron) - Ptom 45 mg PO Q48H [facility] Last Admin: 02/06/21 08:10 Dose: 45 mg Documented by: Systane Eye Drops - (Ptom) 2 drop EYEBOTH QID PRN PRN Reason: Dry Eyes Last Admin: 02/07/21 06:27 Dose: 2 drop Documented by: Clonazepam [Klonopin ] 0.5 Mg Tablet - Ptom 1 mg PO BEDTIME PRN PRN Reason: restless legs Calcium 1200mg/25mcg Vitamin D (Per 2 Tab) - Ptom 2 tab PO DAILY [facility] Last Admin: 02/07/21 08:34 Dose: 2 tab Documented by: Ascorbic Acid [ Vitamin C] 500 Mg Tablet - Ptom 500 mg PO Q48H [facility] Last Admin: 02/06/21 08:09 Dose: 500 mg Documented by: Acetaminophen 650 Mg (Tab.Er - Ptom) 650 mg PO Q8H PRN PRN Reason: Pain Last Admin: 02/06/21 08:12 Dose: 650 mg Documented by: Orlistat [Kenton] 60 (Mg Capsule - Ptom) 60 mg PO BID@1300,1900 [facility] Last Admin: 02/06/21 18:30 Dose: 60 mg Documented by: Aspercreme With Lidocaine Own Med* * 0 applic TOP BID PRN PRN Reason: Pain Last Admin: 02/04/21 07:37 Dose: 1 applic Documented by: Omeprazole (Omeprazole 20 Mg Cap.Cr) 20 mg PO DAILY PRN PRN Reason: Other Tramadol HCl (Tramadol 50 Mg Tab - Ptom) 100 mg PO TID PRN PRN Reason: Pain (moderate 4-6) Last Admin: 02/07/21 07:52 Dose: 100 mg Documented by: Triamcinolone Acetonide (Triamcinolone Acetonide 0.1% Crm - Ptom) 0 gm TOP TID PRN PRN Reason: Rash Last Admin: 02/04/21 15:04 Dose: 1 applic Documented by: Trolamine Salicylate (Trolamine Salicylate/Aloe Vera 10% Crm 85 Gm Tube) 0 gm TOP BID PRN PRN Reason: Pain Last Admin: 01/31/21 10:25 Dose: 1 applic Documented by: Discontinued Medications Docusate Sodium (Docusate Sodium 100 Mg Cap - Ptom) 200 mg PO DAILY [facility] Docusate Sodium (Docusate Sodium 100 Mg Cap) 200 mg PO DAILY [facility] Metoprolol Succinate (Metoprolol Succinate 50 Mg Tab.Er - Ptom) 50 mg PO DAILY@0800 [facility] Orlistat [Kenton] 60 (Mg Capsule - Ptom) 60 mg PO BID [facility] Last Admin: 01/25/21 10:01 Dose: Not Given Documented by: Aspercreme With (Lidocaine 4% - Ptom) 1 applic TOP ASDIRECTED PRN PRN Reason: Pain Last Admin: 01/30/21 10:42 Dose: 1 applic Documented by: Prednisone (Prednisone 20 Mg Tab) 20 mg PO DAILY JOAN Tramadol HCl (Tramadol 50 Mg Tab - Ptom) 1 - 2 mg PO TID PRN PRN Reason: Pain (moderate 4-6) Trolamine Salicylate (Aspercreme (Trolamine Salicylate 10%) - Ptom) 0 gm TOP DAILY PRN PRN Reason: Pain Last Admin: 01/29/21 21:43 Dose: 1 applic Documented by: - Exam Physical Findings Comments:: GENERAL: Well-appearing adult in no acute distress. HEENT: Normocephalic, atraumatic. Conjunctiva clear. Nares patent without discharge. Mucous membranes moist, posterior pharynx unremarkable. NECK: Supple, no masses. CV: Regular rate and rhythm, no murmurs, rubs, or gallops. 2+ radial pulses. PULMONARY: Normal effort, clear to auscultation bilaterally, no wheezes, rales, or rhonchi. ABDOMEN: Positive bowel sounds, soft, nontender, nondistended. EXTREMITIES: No edema, cyanosis, or clubbing. MUSCULOSKELETAL: Moves all extremities well. NEUROLOGICAL: No obvious deficits. DERMATOLOGIC: No rashes or suspicious lesions in exposed areas. Splint in place to left index finger. PSYCHIATRIC: Alert, interactive, appropriate affect.
== END 2021-02-07 11:15 | disposition home or self-care (01) | DRG 861 ==
LOC: KA.MS 13:39 → UNDOADMIN 13:39
PROVIDERS: ADMIT Family Medicine; ATTEND Family Medicine
DX: R53.81 Other malaise (principal); I10 Essential (primary) hypertension; E78.5 Hyperlipidemia, unspecified; D50.9 Iron deficiency anemia, unspecified; G89.4 Chronic pain syndrome; M81.0 Age-related osteoporosis without current pathological fracture; M06.9 Rheumatoid arthritis, unspecified; G25.81 Restless legs syndrome; K59.09 Other constipation; M10.9 Gout, unspecified; M21.379 Foot drop, unspecified foot; M79.7 Fibromyalgia; H54.7 Unspecified visual loss; E78.00 Pure hypercholesterolemia, unspecified; J45.909 Unspecified asthma, uncomplicated; Z20.822 Contact with and (suspected) exposure to COVID-19; K21.9 Gastro-esophageal reflux disease without esophagitis; M19.90 Unspecified osteoarthritis, unspecified site; G43.909 Migraine, unspecified, not intractable, without status migrainosus; E66.9 Obesity, unspecified; D84.9 Immunodeficiency, unspecified; Z90.89 Acquired absence of other organs; Z90.49 Acquired absence of other specified parts of digestive tract; Z79.899 Other long term (current) drug therapy; Z88.8 Allergy status to other drugs, medicaments and biological substances; Z91.011 Allergy to milk products; Z87.440 Personal history of urinary (tract) infections; Z88.1 Allergy status to other antibiotic agents; Z88.2 Allergy status to sulfonamides; Z90.710 Acquired absence of both cervix and uterus; Z98.890 Other specified postprocedural states
CPT/HCPCS: 97110-GP; 97162-GP; A9270-GY; U0002

== ENCOUNTER 2021-12-03 10:24 | Emergency (ER) | payer BC ==
[2021-12-03] MEDS ORDERED: Sodium Chloride 0.9% 10 ML Syringe FLUSH PRN (10:49)
[2021-12-03] MEDS: Sodium Chloride 0.9% 1,000 ML IV ONE ×2 (11:00→12:23)
[2021-12-03] MEDS: Ondansetron 4 MG/2 ML SDV IVPUSH ONE (11:05)
[2021-12-03 11:57] LABS: ANION GAP 14.8 mmol/L (5-15); CHLORIDE,CL 101 mmol/L (98-107); SODIUM,NA 136 mmol/L (136-145)
[2021-12-03] MEDS: Morphine 2 MG/ML SYRINGE IVPUSH ONE (12:23)
[2021-12-03] MEDS: Ketorolac 30 MG/ML SDV IVPUSH ONE (12:30)
[2021-12-03] MEDS: Ciprofloxacin 500 MG Tab PO ONE (13:42)
== END 2021-12-03 13:55 | disposition home or self-care (01) ==
LOC: KA.ED 10:24
DX: N20.0 Calculus of kidney (principal); N30.01 Acute cystitis with hematuria; E78.00 Pure hypercholesterolemia, unspecified; M19.90 Unspecified osteoarthritis, unspecified site; E66.9 Obesity, unspecified; Z91.041 Radiographic dye allergy status; Z91.011 Allergy to milk products; Z91.013 Allergy to seafood; Z88.2 Allergy status to sulfonamides; Z91.018 Allergy to other foods; Z79.899 Other long term (current) drug therapy; Z93.6 Other artificial openings of urinary tract status; Z68.29 Body mass index [BMI] 29.0-29.9, adult
CPT/HCPCS: 36415; 74176; 80053; 81001; 83605; 85025; 87040; 87086; 96374; 96375; 99284; 99284-25; A9270-GY; J1885; J2270; J2405; J7030

== ENCOUNTER 2022-07-24 09:45 | Observation (INO) | payer BC ==
[2022-07-24] MEDS: Sodium Chloride 0.9% 10 ML Syringe FLUSH PRN ×2 (10:02→19:30)
[2022-07-24] MEDS ORDERED: Sodium Chloride 0.9% 1,000 ML IV ONE ×2 (10:15→12:11)
[2022-07-24] MEDS ORDERED: Ondansetron 4 MG/2 ML SDV IVPUSH ONE ×2 (10:15→12:31)
[2022-07-24 10:45] LABS: ANION GAP 16.6 mmol/L (5-15); CHLORIDE,CL 101 mmol/L (98-107); SODIUM,NA 137 mmol/L (136-145)
[2022-07-24 10:47] LABS: ESTIMATED GFR 98 mL/min (>=60)
[2022-07-24 10:56] LABS: CORONAVIRUS COVID-19 NAA NEGATIVE (NEGATIVE); RESPIRATORY SYNCYTIAL VIR NAA NEGATIVE (NEGATIVE)
[2022-07-24] MEDS ORDERED: Ketorolac 30 MG/ML SDV IVPUSH ONE (11:36)
[2022-07-24] MEDS ORDERED: Sodium Chloride 0.9% 1,000 ML ONE (12:09)
[2022-07-24] MEDS ORDERED: cefTRIAXone 1 GM Vial IVPUSH ONE (12:09)
[2022-07-24] MEDS ORDERED: Acetaminophen 500 MG Tab ONE ×2 (12:09→20:06)
[2022-07-24] MEDS ORDERED: Acetaminophen 500 MG Tab PO ONE (12:11)
[2022-07-24] MEDS ORDERED: HYDROmorphone 1 MG/ML Syringe IVPUSH ONE (12:31)
[2022-07-24] MEDS ORDERED: ClonazePAM 0.5 MG Tab PO PRN (14:53)
[2022-07-24] MEDS ORDERED: diphenhydrAMINE 25 MG Cap PO PRN (14:53)
[2022-07-24] MEDS ORDERED: LIDOCAINE HCL TOP PRN (14:53)
[2022-07-24] MEDS ORDERED: Diclofenac Sodium 1% Gel 100 GM Tube TOP PRN (14:53)
[2022-07-24] MEDS ORDERED: Albuterol 8 GM Inhaler INH PRN (15:39)
[2022-07-24] MEDS ORDERED: Carboxymethylcellulose Sodium 0.5% Ophth Soln 15 ML Bottle EYEBOTH PRN (15:41)
[2022-07-24] MEDS ORDERED: Trolamine Salicylate/Aloe Vera 10% Crm 85 GM Tube TOP PRN (15:42)
[2022-07-24] MEDS: Cyclobenzaprine 10 MG Tab PO PRN (16:30)
[2022-07-24] MEDS: Gabapentin 300 MG Cap PO SCH ×2 (16:30→20:09)
[2022-07-24] MEDS: Sodium Chloride 0.9% 1,000 ML IV SCH ×2 (17:16→22:18)
[2022-07-24] MEDS: Metoprolol Succinate 50 MG Tab.ER PO SCH (18:03)
[2022-07-24] MEDS: [UNRECOGNIZED DRUG - OTHER] TRDERM SCH (20:11)
[2022-07-24] MEDS: Acetaminophen 500 MG Tab PO PRN (20:15)
[2022-07-24] MEDS ORDERED: Non-Formulary Medication 1 Each (Azelastine [Astelin Nasal Soln] 30 ML Bottle) NASBOTH SCH (21:00)
[2022-07-25] MEDS: oxyCODONE 5 MG Tab PO PRN ×2 (00:29→18:06)
[2022-07-25] MEDS: Sodium Chloride 0.9% 10 ML Syringe FLUSH PRN (00:45)
[2022-07-25] MEDS: Acetaminophen 500 MG Tab PO PRN ×2 (02:19→18:07)
[2022-07-25 08:08] LABS: ANION GAP 15.7 mmol/L (5-15)
[2022-07-25] MEDS: Magnesium Hydroxide 400 MG/5 ML Susp 30 ML Cup PO PRN ×2 (08:28→13:44)
[2022-07-25] MEDS: Cholecalciferol (Vitamin D3) 25 MCG Tab PO SCH (08:29)
[2022-07-25] MEDS: amLODIPine 5 MG Tab PO SCH (08:29)
[2022-07-25] MEDS: Docusate Sodium 100 MG Cap PO SCH (08:29)
[2022-07-25] MEDS: Lidocaine 5% 700 MG Patch TOP SCH (08:30)
[2022-07-25] MEDS ORDERED: Polyethylene Glycol 3350 Powder 17 GM Packet PO PRN ×2 (09:28→12:12)
[2022-07-25] MEDS ORDERED: Ondansetron 4 MG/2 ML SDV IVPUSH PRN (10:00)
[2022-07-25] MEDS: traMADol 50 MG Tab PO PRN (11:04)
[2022-07-25] MEDS: cefTRIAXone 1 GM Vial IVPUSH SCH (12:35)
[2022-07-25] MEDS: Gabapentin 300 MG Cap PO SCH ×2 (13:44→20:43)
[2022-07-25] MEDS: Metoprolol Succinate 50 MG Tab.ER PO SCH (18:06)
[2022-07-25] MEDS ORDERED: Polyethylene Glycol 3350 Powder 17 GM Packet PO ONE ×2 (18:08→21:00)
[2022-07-25] MEDS: Cyclobenzaprine 10 MG Tab PO PRN (20:43)
[2022-07-25] MEDS: [UNRECOGNIZED DRUG - OTHER] TRDERM SCH (20:43)
[2022-07-26 07:34] LABS: ANION GAP 12.4 mmol/L (5-15)
[2022-07-26] MEDS: Docusate Sodium 100 MG Cap PO SCH (08:24)
[2022-07-26] MEDS: amLODIPine 5 MG Tab PO SCH (08:24)
[2022-07-26] MEDS: Lidocaine 5% 700 MG Patch TOP SCH (08:24)
[2022-07-26] MEDS: Cholecalciferol (Vitamin D3) 25 MCG Tab PO SCH (08:24)
[2022-07-26] MEDS: Acetaminophen 500 MG Tab PO PRN (08:32)
[2022-07-26] MEDS: cefTRIAXone 1 GM Vial IVPUSH SCH (11:10)
[2022-07-26] MEDS ORDERED: cefTRIAXone 1 GM Vial IM ONE (11:28)
[2022-07-26] MEDS ORDERED: Lidocaine 1% 5 ML VIAL INJECT ONE (11:30)
[2022-07-26] MEDS: traMADol 50 MG Tab PO PRN (13:51)
[2022-07-26] MEDS: Gabapentin 300 MG Cap PO SCH (13:51)
[2022-07-26 13:52] VITALS: BP 104/58; PULSE 90
== END 2022-07-26 16:05 | disposition home or self-care (01) ==
LOC: KA.ED 09:45 → KA.MS 13:10
PROVIDERS: ADMIT Family Medicine; ATTEND Family Medicine
DX: N39.0 Urinary tract infection, site not specified (principal); N12 Tubulo-interstitial nephritis, not specified as acute or chronic; E78.00 Pure hypercholesterolemia, unspecified; I10 Essential (primary) hypertension; J45.909 Unspecified asthma, uncomplicated; K21.9 Gastro-esophageal reflux disease without esophagitis; G43.909 Migraine, unspecified, not intractable, without status migrainosus; M81.0 Age-related osteoporosis without current pathological fracture; E66.9 Obesity, unspecified; R74.01 Elevation of levels of liver transaminase levels; Z90.49 Acquired absence of other specified parts of digestive tract; Z98.890 Other specified postprocedural states; Z87.891 Personal history of nicotine dependence; K59.00 Constipation, unspecified; Z88.8 Allergy status to other drugs, medicaments and biological substances; Z91.013 Allergy to seafood; Z88.2 Allergy status to sulfonamides; Z91.018 Allergy to other foods; Z79.899 Other long term (current) drug therapy; Z20.822 Contact with and (suspected) exposure to COVID-19
CPT/HCPCS: 0241U; 36415; 71046; 80053; 81001; 83605; 83880; 84443; 85025; 86140; 87040; 87086; 87088; 87186; 99284; A9270-GY; J0696; J1170; J1885; J2405; J3490; J7030